=== PATIENT | male | born 1970 | race Two or more races ===

== ENCOUNTER 2017-06-19 16:05 | Emergency (ER) | payer BC, OTHER ==
[2017-06-19 16:21] VITALS: TEMP 98.7; BMI 33.5
[2017-06-19] MEDS ORDERED: SODIUM CHLORIDE 1,000 ML IV STA ×3 (16:50→21:26)
[2017-06-19] MEDS ORDERED: ONDANSETRON 4 MG/2 ML VIAL IVPB ONE (16:50)
[2017-06-19] MEDS ORDERED: FAMOTIDINE 20 MG/50 ML IVPB 50 ML IVPB ONE ×2 (16:50→17:45)
[2017-06-19] MEDS ORDERED: ONDANSETRON 4 MG/2 ML VIAL ONE (17:45)
[2017-06-19 17:51] LABS: BASOPHIL 0.8 % (0-2.0); EOSINOPHIL 0.3 % (0-4.5); MCH 29.2 pg (25.7-33.7); MCHC 33.9 g/dl (32.0-35.9); MEAN CELL VOLUME 86.2 fl (80-96); MEAN PLT VOLUME 9.8 fl (7.5-11.1); NEUTROPHILS 77.9 % (42.8-82.8); PLATELET COUNT 238 K/MM3 (134-434); RDW 13.1 % (11.9-15.9); WHITE BLOOD COUNT 11.9 K/mm3 (4.0-10.0)
[2017-06-19 18:16] LABS: ALBUMIN 4.2 g/dl (3.4-5.0); ANION GAP 14 (8-16); CALCIUM 10.4 mg/dL (8.5-10.1); CO2 27 mmol/L (21-32); CREATININE 1.6 mg/dL (0.7-1.3); GLUCOSE,RANDOM 105 mg/dL (74-106); SGOT/AST 27 U/L (15-37); SGPT/ALT 30 U/L (12-78); TOT PROT 8.4 g/dl (6.4-8.2)
[2017-06-19 18:17] LABS: ALK PHOS 75 U/L (45-117)
--- NOTE | 2017-06-19 19:30 | PDOC ---
History of Present Illness - General History Source: Patient Exam Limitations: No Limitations - History of Present Illness Initial Comments: 06/19/17 19:30 The patient is 46 year old male with a significant past medical history of HTN, HLD, and recent gastric sleeve (06/07/17) who presents to the ED with one day of nausea and vomiting. Patient states he recently had the gastric sleeve surgery on 06/07/17 in [facility] (lost 25 pounds). He states he is currently on the liquid protein diet and ran out of his nausea medication 1 week ago. The patient reports an onset of nausea and multiple episodes of vomiting since earlier today. He reports he is unable to drink, eat or take his medication secondary to vomiting. Patient also reports abdominal pain and 1 bowel movement associated with present symptoms. He notes he was at his baseline yesterday and reports this is first episode of nausea and vomiting since getting the procedure done. Denies fevers or chills. Denies diarrhea. Denies dysuria or changes in urinary output. Denies any other symptoms. Surgical hx: Gastric sleeve, Vasectomy <Ирина Thompson - Last Filed: 06/19/17 23:10> <Dominga Swann - Last Filed: 06/19/17 23:42> - General Chief Complaint: Pain, Acute Stated Complaint: STOMAH PAIN Time Seen by Provider: 06/19/17 16:52 Past History <Ирина Thompson - Last Filed: 06/19/17 23:10> - Past Medical History HTN: Yes Hypercholesterolemia: Yes - Surgical History Abdominal Surgery: Yes (gastric sleeve-06/07/2017) - Psycho/Social/Smoking Cessation Hx Suicidal Ideation: No Smoking History: Never smoked <Dominga Swann - Last Filed: 06/19/17 23:42> - Past Medical History Allergies/Adverse Reactions: Allergies Allergy/AdvReac Type Severity Reaction Status Date / Time No Known Allergies Allergy Verified 06/19/17 16:17 Home Medications: Ambulatory Orders Atorvastatin Ca [Lipitor] 20 mg PO DAILY 06/19/17 Calcium Carbonate/Vitamin D2 [Calcium Oys Shell 250 mg Tab] 1 each PO BID Enoxaparin [Lovenox -] 40 mg SQ DAILY 06/19/17 Famotidine 20 mg PO BID 06/19/17 Metoclopramide HCl 10 mg PO TID 06/19/17 Multivitamin [Poly-Vitamin] 1 each PO DAILY 06/19/17 Oxycodone HCl/Acetaminophen [Oxycodone-Acetaminophen 5-325] 1 each PO QID PRN Triamterene/Hydrochlorothiazid [Maxzide 37.5 mg-25 mg Tablet] 1 each PO DAILY Ursodiol [Actigall] 600 mg PO BID 06/19/17 Review of Systems - Review of Systems Able to Perform ROS?: Yes Comments:: 06/19/17 19:30 CONSTITUTIONAL: No reported: Fever, Chills, Diaphoresis, Generalized Weakness, Malaise, Loss of Appetite HEENT: No reported: Rhinorrhea, Nasal Congestion, Throat Pain, Throat Swelling, Difficulty Swallowing, Mouth Swelling, Ear Pain, Eye Pain, Visual Changes CARDIOVASCULAR: No reported: Chest Pain, Syncope, Palpitations, Irregular Heart Rate, Lightheadedness, Peripheral Edema RESPIRATORY: No reported: Cough, Shortness of Breath, SOB with Exertion, Orthopnea, Wheezing , Stridor, Hemoptysis GASTROINTESTINAL: + nausea, vomiting, abdominal pain No reported: Abdominal Distension, Diarrhea, Constipation, Melena, Hematochezia GENITOURINARY: No reported: Dysuria, Frequency, Urgency, Hesitancy, Flank Pain, Genital Pain MUSCULOSKELETAL: No reported: Myalgia, Arthralgia, Joint Swelling, Back pain, Neck Pain SKIN: No reported: Rash, Itching, Pallor HEMEATOLOGIC/IMMUNOLOGIC: No reported: Easy Bleeding, Easy Bruising, Lymphadenopathy, Frequent infections ENDOCRINE: No reported: Unexplained Weight Gain, Unexplained Weight Loss, Heat Intolerance , Cold Intolerance NEUROLOGIC: No reported: Headache, Focal Weakness, Paresthesias, Vertigo, Lightheadedness, Unsteady Gait, Seizure, Mental Status Changes, Incontinence PSYCHIATRIC: No reported: Anxiety, Depression All Other Systems: Reviewed and Negative <Ирина Thompson - Last Filed: 06/19/17 23:10> *Physical Exam - Vital Signs Last Vital Signs Temp Pulse Resp BP Pulse Ox 98.7 F 115 H 19 122/73 98 06/19/17 16:17 06/19/17 16:17 06/19/17 16:17 06/19/17 16:17 09/03/17 16:17 - Physical Exam Comments: 06/19/17 19:31 GENERAL: Well developed, well nourished. Awake and alert. No acute distress. HEENT: Normocephalic, atraumatic. PERRLA, EOMI. No conjunctival pallor. Sclera are non- icteric. Moist mucous membranes. Oropharynx is clear. NECK: Supple. Full ROM. No JVD. Carotid pulses 2+ and symmetric, without bruits. No thyromegaly. No lymphadenopathy. CARDIOVASCULAR: + tachycardic, Regular rhythm. No murmurs, rubs, or gallops. Distal pulses are 2 + and symmetric. PULMONARY: No evidence of respiratory distress. Lungs clear to auscultation bilaterally. No wheezing, rales or rhonchi. ABDOMINAL: Soft. Non-tender. Non-distended. No rebound or guarding. No organomegaly. Normoactive bowel sounds. MUSCULOSKELETAL Normal range of motion at all joints. No bony deformities or tenderness. No CVA tenderness. EXTREMITIES: No cyanosis. No clubbing. No edema. No calf tenderness. SKIN: Warm and dry. Normal capillary refill. No rashes. No jaundice. NEUROLOGICAL: Alert, awake, appropriate. Cranial nerves 2-12 intact. No deficits to light touch and temperature in face, upper extremities and lower extremities. No motor deficits in the in face, upper extremities and lower extremities. Normoreflexic in the upper and lower extremities. Normal speech. Toes are down- going bilaterally. Gait is normal without ataxia. PSYCHIATRIC: Cooperative. Good eye contact. Appropriate mood and affect. <Ирина Thompson - Last Filed: 06/19/17 23:10> - Vital Signs Last Vital Signs Temp Pulse Resp BP Pulse Ox 98.7 F 115 H 19 122/73 98 06/19/17 16:17 06/19/17 16:17 06/19/17 16:17 06/19/17 16:17 06/19/17 16:17 <Dominga Swann - Last Filed: 06/19/17 23:42> ED Treatment Course - LABORATORY CBC & Chemistry Diagram: 06/19/17 17:40 06/19/17 20:30 - ADDITIONAL ORDERS Additional order review: Laboratory Results 06/19/17 06/19/17 17:40 17:36 Sodium 136 Potassium 4.0 Chloride 95 L Carbon Dioxide 27 Anion Gap 14 BUN 33 H Creatinine 1.6 H Creat Clearance w eGFR 46.98 Random Glucose 105 Lactic Acid 1.4 Calcium 10.4 H Total Bilirubin 1.0 AST 27 ALT 30 Alkaline Phosphatase 75 Total Protein 8.4 H Albumin 4.2 Lipase 560 H 06/19/17 17:40 RBC 5.93 H MCV 86.2 MCHC 33.9 RDW 13.1 MPV 9.8 Neutrophils % 77.9 Lymphocytes % 10.7 Monocytes % 10.3 H Eosinophils % 0.3 Basophils % 0.8 - RADIOLOGY Radiograph Interpretation: 06/19/17 23:10 EXAM: CT ABDOMEN AND PELVIS WITH CONTRAST FINDINGS: 3.6 x 2.8 x 2.1 cm hypodensity in medial portion of spleen, question splenic infarct versus hemangioma. Splenic artery patent. Gastric sleeve surgery. Stomach otherwise unremarkable. Minimal fat stranding near gastric antrum, probably postoperative scarring or edema. No focal fluid collection or abscess. No bowel obstruction, colitis, free fluid or free air. Normal appendix. Diverticulosis colon without acute diverticulitis. Cystic foci bilateral kidneys. Unremarkable pancreas and gallbladder. Multiple small hepatic cysts. Small left inguinal region hernia containing fat. Reported by: [employer] architect - Medications Given in the ED: ED Medications Discontinued Medications Generic Name Dose Route Start Last Admin Trade Name Freq PRN Reason Stop Dose Admin Famotidine/Sodium Chloride 50 mls @ 100 mls/hr 06/19/17 16:50 06/19/17 17:50 Pepcid 20 Mg Premixed Ivpb - IVPB 06/19/17 17:19 100 mls/hr ONCE ONE Administration Sodium Chloride 1,000 mls @ 1,000 mls/hr 06/19/17 16:50 06/19/17 17:50 Normal Saline - IV 06/19/17 17:49 1,000 mls/hr ASDIR STA Administration Ondansetron HCl 4 mg 06/19/17 16:50 06/19/17 17:50 Zofran Injection IVPB 06/19/17 16:51 4 mg ONCE ONE Administration <Ирина Thompson - Last Filed: 06/19/17 23:10> - LABORATORY CBC & Chemistry Diagram: 06/19/17 17:40 06/19/17 20:30 - ADDITIONAL ORDERS Additional order review: Laboratory Results 06/19/17 06/19/17 17:40 17:36 Sodium 136 Potassium 4.0 Chloride 95 L Carbon Dioxide 27 Anion Gap 14 BUN 33 H Creatinine 1.6 H Creat Clearance w eGFR 46.98 Random Glucose 105 Lactic Acid 1.4 Calcium 10.4 H Total Bilirubin 1.0 AST 27 ALT 30 Alkaline Phosphatase 75 Total Protein 8.4 H Albumin 4.2 Lipase 560 H 06/19/17 17:40 RBC 5.93 H MCV 86.2 MCHC 33.9 RDW 13.1 MPV 9.8 Neutrophils % 77.9 Lymphocytes % 10.7 Monocytes % 10.3 H Eosinophils % 0.3 Basophils % 0.8 - RADIOLOGY Radiology Studies Ordered: Category Date Time Status ABDOMEN & PELVIS CT WITH CONTR [CT] Stat CT Scan 06/19/17 18:28 Ordered - Medications Given in the ED: ED Medications Discontinued Medications Generic Name Dose Route Start Last Admin Trade Name Freq PRN Reason Stop Dose Admin Famotidine/Sodium Chloride 50 mls @ 100 mls/hr 06/19/17 16:50 06/19/17 17:50 Pepcid 20 Mg Premixed Ivpb - IVPB 06/19/17 17:19 100 mls/hr ONCE ONE Administration Sodium Chloride 1,000 mls @ 1,000 mls/hr 06/19/17 16:50 06/19/17 17:50 Normal Saline - IV 06/19/17 17:49 1,000 mls/hr ASDIR STA Administration Ondansetron HCl 4 mg 06/19/17 16:50 06/19/17 17:50 Zofran Injection IVPB 06/19/17 16:51 4 mg ONCE ONE Administration <Dominga Swann - Last Filed: 06/19/17 23:42> Medical Decision Making - Medical Decision Making 06/19/17 20:14 46-year-old male presents with 1 day of nausea and persistent vomiting. He did have a gastric sleeve placed about 3 weeks ago at a hospital in [facility]. His physician is on vacation the covering surgeon told to come to the nearest hospital. He lives locally, so he came [facility]. He's also had 25 pounds since his surgery. He still is on the liquid only diet and does not take any regular food as yet . Patient denies any significant pain at the time of arrival, there was no guarding. He said that he had increased pain earlier but has diminished. However, he doesn't complain persistent nausea Patient was given IV Zofran CBC did not show any significant leukocytosis, however, chemistries did show an increased creatinine of 1.6 . I spoke to the patient about his elevated kidney function tests and he said that this is a chronic problem, but was not able to give me the range of his normal creatinine levels. He said his doctors in the past told him it was elevated because he works out at the gym Plan CAT scan of abd/pelvis -he received 2 L IV fluids and his creatinine came down to 1.3. 06/19/17 23:30 CAT scan of the abdomen and pelvis with contrast showed a 3.62.82.1 cm hypodensity in the medial portion spleen, questionable splenic infarct versus hemangioma. The splenic artery was patent. Gastric sleeve surgery. Stomach, otherwise unremarkable Minimal fat stranding in the gastric antrum, probable postoperative scarring or edema. No focal fluid collection or abscess or bowel obstruction, colitis, free fluid or free air. Normal appendix Diverticulosis without any acute diverticulitis Cystic for her bilateral kidneys Unremarkable, pancreas and gallbladder Multiple small hepatic cysts, small left inguinal assessing the patient. PATIENT REASSESSMENT: He has no further vomiting. He states he has no abdominal pain. He remained afebrile during his stay in the emergency department I spoke with the covering surgeon, Dr. Mayers from his standpoint, the patient can be discharged home with follow-up this week with the pt's regular surgeon. She will be given I discussed the images of his CAT scan to take with them to see his surgeon. He already has an appointment on Tuesday <Dominga Swann - Last Filed: 06/19/17 23:42> *DC/Admit/Observation/Transfer - Attestations Scribe Attestion: 06/19/17 19:31 Documentation prepared by Ирина Thompson, acting as medical office technologist for Dominga Swann MD <Ирина Thompson - Last Filed: 06/19/17 23:10> <Dominga Swann - Last Filed: 06/19/17 23:42> Diagnosis at time of Disposition: Status post bariatric surgery Vomiting Qualifiers: Vomiting type: unspecified Vomiting Intractability: non-intractable Nausea presence: with nausea Qualified Code(s): R11.2 - Nausea with vomiting, unspecified - Discharge Dispostion Disposition: HOME Condition at time of disposition: Stable - Patient Instructions Printed Discharge Instructions: DI for Vomiting -- Adult Additional Instructions: PLEASE KEEP YOUR APPOINTMENT WITH YOUR SURGEON THIS WEEK TAKE YOUR IMAGING STUDIES AND LAB RESULTS WITH YOU WHEN YOU SEE YOUR SURGEON RETURN FOR ANY WORSENING SYMPTOMS
[2017-06-19 20:47] LABS: URINE APPEARANCE SLCLOUDY; URINE BILIRUBIN NEGATIVE (NEGATIVE); URINE BLOOD NEGATIVE (NEGATIVE); URINE COLOR YELLOW; URINE GLUCOSE (UA) NEGATIVE (NEGATIVE); URINE KETONE 1+ (NEGATIVE); URINE LEUK ESTERASE NEGATIVE (NEGATIVE); URINE NITRITE NEGATIVE (NEGATIVE); URINE PROTEIN NEGATIVE (NEGATIVE); URINE UROBILINOGEN NEGATIVE mg/dL (0.2-1.0)
[2017-06-19 21:15] LABS: ANION GAP 11 (8-16); CALCIUM 8.6 mg/dL (8.5-10.1); CO2 27 mmol/L (21-32); CREATININE 1.3 mg/dL (0.7-1.3); GLUCOSE,RANDOM 94 mg/dL (74-106)
[2017-06-19 23:42] VITALS: BP 117/65; PULSE 86
--- NOTE | 2017-06-20 22:15 | EKG ---
Test Reason : Blood Pressure : / mmHG Vent. Rate : 094 BPM Atrial Rate : 094 BPM P-R Int : 160 ms QRS Dur : 096 ms QT Int : 352 ms P-R-T Axes : 047 -13 027 degrees QTc Int : 440 ms NORMAL SINUS RHYTHM NORMAL ECG NO PREVIOUS ECGS AVAILABLE Confirmed by RAYA PATEL MD ([id number]) on 06/20/2017 10:14:42 PM Referred By: Confirmed By:RAYA PATEL MD
--- NOTE | 2017-06-20 23:29 | PDOC ---
Patient Follow-up (Call Back) - Post ED Follow - Up Condition at time of discharge: Stable Disposition at time of original discharge: HOME Reason for Call Back: Radiology (Received call from Dr. Danyel Bansal after he performed a re read of a CT ABD/PEL with contrast that was done yesterday. Dr Bansal called and reported that there is a lack of opacification of the main portal vein and portal branches as well as the superior mesenteric vein, which may be on the basis of thrombosis. He requested that the patient be called immediately and return for a triple phase CT with IV contrast. Pt. was called multiple times at home number as listed in his chart, close of kin listed had same phone number, number was not in working order, also attempted to call employer to ask for his number, however no answer. Dr. Swann contacted the surgeon, at [facility] . is going to continue look at his chart and see what number he has for Mr. Fontenot and contact him. He will Dr. Swann back with the results his attempt. If they are unable to contact him by phone police will be notified to go to his home to have him come here for further imaging.)
== END 2017-06-19 23:45 | disposition home or self-care (01) ==
LOC: JER 16:05
PROC: 3E033GC Introduction of Other Therapeutic Substance into Peripheral Vein, Percutaneous Approach (ICD-10-PCS; principal; 2017-06-19)
PROC: 3E033GC Introduction of Other Therapeutic Substance into Peripheral Vein, Percutaneous Approach (ICD-10-PCS; 2017-06-19)
DX: R11.2 Nausea with vomiting, unspecified (principal); Z98.84 Bariatric surgery status; I10 Essential (primary) hypertension; E78.00 Pure hypercholesterolemia, unspecified
CPT/HCPCS: 36415; 74177-TC; 80048; 80053; 81003; 83605; 83690; 85025; 93005; 93010; 99283-25

== ENCOUNTER 2017-06-21 02:09 | Inpatient (IN) | payer BC, OTHER ==
[2017-06-21] MEDS ORDERED: SODIUM CHLORIDE 1,000 ML IV STA (02:40)
[2017-06-21 02:44] VITALS: BMI 34.0
[2017-06-21 02:57] LABS: BASOPHIL 0.5 % (0-2.0); EOSINOPHIL 0.2 % (0-4.5); MCH 29.2 pg (25.7-33.7); MCHC 34.4 g/dl (32.0-35.9); MEAN CELL VOLUME 84.8 fl (80-96); MEAN PLT VOLUME 9.3 fl (7.5-11.1); NEUTROPHILS 73.7 % (42.8-82.8); PLATELET COUNT 173 K/MM3 (134-434); RDW 12.9 % (11.9-15.9); WHITE BLOOD COUNT 11.6 K/mm3 (4.0-10.0)
[2017-06-21 03:12] LABS: INR 1.68 (0.82-1.09); PROTHROMBIN TIME (PATIENT) 18.7 SEC (9.98-11.88)
[2017-06-21 03:21] LABS: ALBUMIN 3.5 g/dl (3.4-5.0); ALK PHOS 68 U/L (45-117); ANION GAP 11 (8-16); BILIRUBIN,TOTAL 1.1 mg/dL (0.2-1.0); CO2 30 mmol/L (21-32); CREATININE 1.1 mg/dL (0.7-1.3); GLUCOSE,RANDOM 93 mg/dL (74-106); SGOT/AST 18 U/L (15-37); SGPT/ALT 21 U/L (12-78); TOT PROT 7.3 g/dl (6.4-8.2)
--- NOTE | 2017-06-21 03:33 | PDOC ---
History of Present Illness <Angel Syed - Last Filed: 06/21/17 06:31> - General History Source: Patient Exam Limitations: No Limitations - History of Present Illness Initial Comments: 06/21/17 03:35 Patient is a 46 year old male with a significant past medical history of HTN, HLD, and recent gastric sleeve (06/07/17) who presents to the ED for abnormal radiology results. Patient was discharged yesterday night after imaging [employer] radiologist cleared patient. [place] radiologist reviewed x-ray report and noticed possibility of blood clot in portal vein and its branches. Attending physician attempted to contact patient with no success. Physician contacted police to patients home to establish contact with patient. Attending physician Dr. Syed agrees with Dr. Swann input to order Triple phase CT angiogram of abdomen and pelvis. Denies headache, dizziness. Denies chest pain, SOB. Denies any other symptoms. Allergies: N/A <Butch Murcia - Last Filed: 06/21/17 06:56> - General Chief Complaint: Revisit,Radiology Variance Stated Complaint: PCP REFERRAL Time Seen by Provider: 06/21/17 02:43 Past History - Past Medical History HTN: Yes Hypercholesterolemia: Yes - Surgical History Abdominal Surgery: Yes (gastric sleeve-06/07/2017) - Psycho/Social/Smoking Cessation Hx Suicidal Ideation: No Smoking History: Never smoked Have you smoked in the past 12 months: No Information on smoking cessation initiated: No Hx Alcohol Use: No Drug/Substance Use Hx: No <Angel Syed - Last Filed: 06/21/17 06:31> <Butch Murcia - Last Filed: 06/21/17 06:56> - Past Medical History Allergies/Adverse Reactions: Allergies Allergy/AdvReac Type Severity Reaction Status Date / Time No Known Allergies Allergy Verified 06/21/17 02:42 Home Medications: Ambulatory Orders Atorvastatin Ca [Lipitor] 20 mg PO DAILY 06/19/17 Calcium Carbonate/Vitamin D2 [Calcium Oys Shell 250 mg Tab] 1 each PO BID Famotidine 20 mg PO BID 06/19/17 Metoclopramide HCl 10 mg PO TID 06/19/17 Multivitamin [Poly-Vitamin] 1 each PO DAILY 06/19/17 Oxycodone HCl/Acetaminophen [Oxycodone-Acetaminophen 5-325] 1 each PO QID PRN Triamterene/Hydrochlorothiazid [Maxzide 37.5 mg-25 mg Tablet] 1 each PO DAILY Ursodiol [Actigall] 600 mg PO BID 06/19/17 Ondansetron [Zofran Odt -] 4 mg SL TID PRN #21 od.tablet 06/20/17 Review of Systems - Review of Systems Able to Perform ROS?: Yes Comments:: 06/21/17 03:36 No change since yesterday night. All Other Systems: Reviewed and Negative <Butch Murcia - Last Filed: 06/21/17 06:56> *Physical Exam - Vital Signs Last Vital Signs Temp Pulse Resp BP Pulse Ox 98.6 F 91 H 14 119/56 96 06/21/17 02:42 06/21/17 02:42 06/21/17 02:42 06/21/17 02:42 06/21/17 02:42 <Angel Syed - Last Filed: 06/21/17 06:31> - Vital Signs Last Vital Signs Temp Pulse Resp BP Pulse Ox 98.6 F 91 H 14 119/56 96 06/21/17 02:42 06/21/17 02:42 06/21/17 02:42 06/21/17 02:42 06/21/17 02:42 - Physical Exam Comments: 06/21/17 03:36 GENERAL: Awake, alert, and fully oriented, in no acute distress HEAD: No signs of trauma EYES: PERRLA, EOMI, sclera anicteric, conjunctiva clear ENT: Auricles normal inspection, hearing grossly normal, nares patent, oropharynx clear without exudates. Moist mucosa NECK: Normal ROM, supple, no lymphadenopathy, JVD, or masses LUNGS: Breath sounds equal, clear to auscultation bilaterally. No wheezes, and no crackles HEART: Regular rate and rhythm, normal S1 and S2, no murmurs, rubs or gallops ABDOMEN: Soft, nontender, normoactive bowel sounds. No guarding, no rebound. No masses EXTREMITIES: Normal range of motion, no edema. No clubbing or cyanosis. No cords, erythema, or tenderness NEUROLOGICAL: Cranial nerves II through XII grossly intact. Normal speech, normal gait SKIN: Warm, Dry, normal turgor, no rashes or lesions noted. <Butch Murcia - Last Filed: 06/21/17 06:56> Heart Score/ECG Review - ECG Intrepretation Comment:: 06/21/17 06:55 Normal Sinus Rhythm Normal ECG <Butch Murcia - Last Filed: 06/21/17 06:56> ED Treatment Course - LABORATORY CBC & Chemistry Diagram: 06/21/17 02:49 06/21/17 02:49 - ADDITIONAL ORDERS Additional order review: Laboratory Results 06/21/17 06/21/17 02:49 02:49 INR 1.68 H Sodium 137 Potassium 3.7 Chloride 96 L Carbon Dioxide 30 Anion Gap 11 BUN 15 D Creatinine 1.1 Creat Clearance w eGFR > 60 Random Glucose 93 Calcium 9.0 Total Bilirubin 1.1 H AST 18 D ALT 21 D Alkaline Phosphatase 68 Total Protein 7.3 Albumin 3.5 06/21/17 02:49 RBC 4.95 MCV 84.8 MCHC 34.4 RDW 12.9 MPV 9.3 Neutrophils % 73.7 Lymphocytes % 13.1 D Monocytes % 12.5 H Eosinophils % 0.2 Basophils % 0.5 <Angel Syed - Last Filed: 06/21/17 06:31> - LABORATORY CBC & Chemistry Diagram: 06/21/17 02:49 06/21/17 02:49 - ADDITIONAL ORDERS Additional order review: Laboratory Results 06/21/17 06/21/17 02:49 02:49 INR 1.68 H Sodium 137 Potassium 3.7 Chloride 96 L Carbon Dioxide 30 Anion Gap 11 BUN 15 D Creatinine 1.1 Creat Clearance w eGFR > 60 Random Glucose 93 Calcium 9.0 Total Bilirubin 1.1 H AST 18 D ALT 21 D Alkaline Phosphatase 68 Total Protein 7.3 Albumin 3.5 06/21/17 02:49 RBC 4.95 MCV 84.8 MCHC 34.4 RDW 12.9 MPV 9.3 Neutrophils % 73.7 Lymphocytes % 13.1 D Monocytes % 12.5 H Eosinophils % 0.2 Basophils % 0.5 <Butch Murcia - Last Filed: 06/21/17 06:56> Medical Decision Making - Medical Decision Making 06/21/17 06:29 Portal Vein Thrombus- Case discussed with Dr. ARROYO, covering for Dr. Thomas. Nothing to do with Gastric Sleve.... but this is a complication and that is why the patient should have been taking the Lovenox. Needs IV Heparin and then bridged to coumadin. <Angel Syed - Last Filed: 06/21/17 06:31> - Medical Decision Making 06/21/17 05:[address] Efrain Arroyo @5:47am. Awaiting Call back Called back @6:09am. Case discussed. <Butch Murcia - Last Filed: 06/21/17 06:56> *DC/Admit/Observation/Transfer - Discharge Dispostion Admit: Yes - Attestations Physician Attestion: 06/21/17 03:33 I, Dr. Angel Syed, attest that this document has been prepared under my direction and personally reviewed by me in its entirety. I further attest, that it accurately reflects all work, treatment, procedures and medical decision -making performed by me. <Angel Syed - Last Filed: 06/21/17 06:31> - Attestations Scribe Attestion: 06/21/17 03:37 Documentation prepared by Butch Murcia, acting as medical billing assistant for Angel Syed MD. <Butch Murcia - Last Filed: 06/21/17 06:56> Diagnosis at time of Disposition: Portal vein thrombosis - Discharge Dispostion Condition at time of disposition: Unchanged/Unknown
[2017-06-21] MEDS ORDERED: HEPARIN NA (PORCINE) 5,000 UNITS/ML 1ML VIAL IVPUSH PRN ×2 (06:23)
[2017-06-21] MEDS ORDERED: HEPARIN INFUSION - 500 ML IVPB ONE (06:43)
[2017-06-21] MEDS: HEPARIN INFUSION - 500 ML IVPB SCH (06:55)
[2017-06-21] MEDS ORDERED: ONDANSETRON 4 MG/2 ML VIAL IVPB PRN (07:46)
[2017-06-21] MEDS ORDERED: ACETAMINOPHEN 325 MG TABLET (FP) PO PRN (09:20)
--- NOTE | 2017-06-21 09:21 | HP ---
CHIEF COMPLAINT: Abd pain and n/v PCP: Non-staff ( Dr. Efrain Mayers ) HISTORY OF PRESENT ILLNESS: 46 yo M h/o recent gastric sleeve (06/07/17) who presents to the ED with abdominal pain, nausea and vomiting x 2 days. Patient started experiencing the symptoms on Tuesday afternoon. His surgeon who performed the sleeve told him to come in the ED for further evaluation. CT abd done in ED showed probable portal vein thrombosis (PVT). However, the ED was informed of the official finding after patient was discharged on zofran. Fortunately, caring ED physician contacted the police after multiple attempts trying to reach the patient. Eventually, patient was found and brought in by police for urgent medical attention. Patient stated that the abd pain started without warning or trigger, located in lower quadrants, 7/10, pressure-like, non-radiating, not related to food intake or position, moderately relieved with oxycodone, a/w nausea and non-bloody non- bilious vomiting. Denies h/o liver disease, sick contact, recent travel, dietary change, fever, chills, chest pain, shortness of breath, urinary or bowel symptoms. ER course was notable for: (1) Triple phase CT abd done pending report (2) Start on heparin gtt (3) Hemodynamically stable Recent Travel: Denies PAST MEDICAL HISTORY: HTN, HLD, ?leaky valve PAST SURGICAL HISTORY: gastric sleeve 06/07/17 Social History: Smoking: Denies Alcohol: Denies Drugs: Denies Family History: Non-contributory Allergies No Known Allergies Allergy (Verified 06/21/17 02:42) HOME MEDICATIONS: Home Medications Medication Instructions Recorded Atorvastatin Ca [Lipitor] 20 mg PO DAILY 06/19/17 Calcium Carbonate/Vitamin D2 1 each PO BID 06/19/17 [Calcium Oys Shell 250 mg Tab] Famotidine 20 mg PO BID 06/19/17 Metoclopramide HCl 10 mg PO TID 06/19/17 Multivitamin [Poly-Vitamin] 1 each PO DAILY 06/19/17 Oxycodone HCl/Acetaminophen 1 each PO QID PRN 06/19/17 [Oxycodone-Acetaminophen 5-325] Triamterene/Hydrochlorothiazid 1 each PO DAILY 06/19/17 [Maxzide 37.5 mg-25 mg Tablet] Ursodiol [Actigall] 600 mg PO BID 06/19/17 Ondansetron [Zofran Odt -] 4 mg SL TID PRN #21 od.tablet 06/20/17 REVIEW OF SYSTEMS CONSTITUTIONAL: Absent: fever, chills, diaphoresis, generalized weakness, malaise, loss of appetite, weight change HEENT: Absent: rhinorrhea, nasal congestion, throat pain, throat swelling, difficulty swallowing, mouth swelling, ear pain, eye pain, visual changes CARDIOVASCULAR: Absent: chest pain, syncope, palpitations, irregular heart rate, lightheadedness , peripheral edema RESPIRATORY: Absent: cough, shortness of breath, dyspnea with exertion, orthopnea, wheezing, stridor, hemoptysis GASTROINTESTINAL:abdominal pain, abdominal distension, nausea, vomiting Absent: diarrhea, constipation, melena, hematochezia GENITOURINARY: Absent: dysuria, frequency, urgency, hesitancy, hematuria, flank pain, genital pain MUSCULOSKELETAL: Absent: myalgia, arthralgia, joint swelling, back pain, neck pain SKIN: Absent: rash, itching, pallor HEMATOLOGIC/IMMUNOLOGIC: Absent: easy bleeding, easy bruising, lymphadenopathy, frequent infections ENDOCRINE: Absent: unexplained weight gain, unexplained weight loss, heat intolerance, cold intolerance NEUROLOGIC: Absent: headache, focal weakness or paresthesias, dizziness, unsteady gait, seizure, mental status changes, bladder or bowel incontinence PSYCHIATRIC: Absent: anxiety, depression, suicidal or homicidal ideation, hallucinations. PHYSICAL EXAMINATION Last Vital Signs Temp Pulse Resp BP Pulse Ox 98.6 F 83 18 127/75 98 06/21/17 02:42 06/21/17 07:43 06/21/17 07:43 06/21/17 07:43 06/21/17 07:43 GENERAL: AAOx3, in no acute distress. EYES: Pupils equal, round and reactive to light, extraocular movements intact, sclera anicteric, conjunctiva clear. EARS, NOSE, THROAT: oropharynx clear without exudates. Moist mucous membranes. LUNGS: CTAB HEART: RRR, normal S1 and S2 without murmur, rub or gallop. ABDOMEN: RUQ tenderness, moderately distended, normoactive bowel sounds, no guarding, no rebound, no masses. No hepatomegaly, mild splenomegaly. EXTREMITIES: 2+ pulses, warm, well-perfused. No calf tenderness. No peripheral edema. NEUROLOGICAL: Cranial nerves II-XII intact. Normal speech. Normal gait. PSYCHIATRIC: Cooperative. Good eye contact. Appropriate mood and affect. SKIN: Warm, dry, normal turgor, no rashes or lesions noted, normal capillary refill. CBCD WBC 11.6 K/mm3 (4.0-10.0) H 06/21/17 02:49 RBC 4.95 M/mm3 (4.00-5.60) 06/21/17 02:49 Hgb 14.5 GM/dL (11.7-16.9) D 06/21/17 02:49 Hct 42.0 % (35.4-49) D 06/21/17 02:49 MCV 84.8 fl (80-96) 06/21/17 02:49 MCHC 34.4 g/dl (32.0-35.9) 06/21/17 02:49 RDW 12.9 % (11.9-15.9) 06/21/17 02:49 Plt Count 173 K/MM3 (134-434) D 06/21/17 02:49 MPV 9.3 fl (7.5-11.1) 06/21/17 02:49 CMP Sodium 137 mmol/L (136-145) 06/21/17 02:49 Potassium 3.7 mmol/L (3.5-5.1) 06/21/17 02:49 Chloride 96 mmol/L (98-107) L 06/21/17 02:49 Carbon Dioxide 30 mmol/L (21-32) 06/21/17 02:49 Anion Gap 11 (8-16) 06/21/17 02:49 BUN 15 mg/dL (7-18) D 06/21/17 02:49 Creatinine 1.1 mg/dL (0.7-1.3) 06/21/17 02:49 Creat Clearance w eGFR > 60 (>60) 06/21/17 02:49 Calcium 9.0 mg/dL (8.5-10.1) 06/21/17 02:49 Total Bilirubin 1.1 mg/dL (0.2-1.0) H 06/21/17 02:49 AST 18 U/L (15-37) D 06/21/17 02:49 ALT 21 U/L (12-78) D 06/21/17 02:49 Alkaline Phosphatase 68 U/L (45-117) 06/21/17 02:49 Total Protein 7.3 g/dl (6.4-8.2) 06/21/17 02:49 Albumin 3.5 g/dl (3.4-5.0) 06/21/17 02:[address] abd on 06/21: pending official report CT Abd on 06/19: Probable small acute/subacute splenic infarct + probable portal vein thrombosis ASSESSMENT/PLAN: 46 yo M admitted to med-surg for probable portal vein thrombosis. Abdominal pain - Likely 2/2 portal vein thrombosis and splenic infarction - f/u triple phase CT scan - Heparin gtt bridge to coumadin - Percocet for pain control - Hemonc and GI consults s/p Gastric sleeve - Cont. reglan and ursodiol HTN - Cont. dyazide HLD - Cont. lipitor FEN - No fluid indicated - Normal lytes - Sodium controlled diet Prophylaxis - DVT: on heparin gtt - GI: on famotidine Dispo - Admit to obs - Cont. current medical management if imaging confirms PVT Visit type - Emergency Visit Emergency Visit: Yes ED Registration Date: 06/21/17 Care time: The patient presented to the Emergency Department on the above date and was hospitalized for further evaluation of their emergent condition. - New Patient This patient is new to me today: Yes Date on this admission: 06/21/17 - Critical Care Critical Care patient: No
[2017-06-21] MEDS ORDERED: CALCIUM 250MG/VIT-D 125 UNITS 1 COMBO TABLET PO SCH (10:00)
[2017-06-21] MEDS: TRIAMTERENE AND HCTZ - 37.5 MG/25 MG CAPSULE PO SCH (10:55)
[2017-06-21] MEDS: URSODIOL 300 MG CAPSULE PO SCH ×2 (10:55→21:03)
[2017-06-21] MEDS: MULTIVITAMINS (DAILY MVI) TABLET (FP) PO SCH (10:56)
[2017-06-21] MEDS: RANITIDINE HCL 150 MG TABLET (FP) PO SCH ×2 (10:56→21:04)
--- NOTE | 2017-06-21 12:46 | CON.GI ---
Consult Consult Specialty:: Gastroenterology for Dr. Perla Reason for Consultation:: Abdominal pain - History of Present Illness History of Present Illness: 46 yo M who is presenting today for mid to lower cramping abdominal pain that he has been experiencing since Tuesday06/19/17. He confirms associated nausea and vomiting x1 without noted blood or mucus in emesis. Pt states he had a Laparoscopic Gastric sleeve creation done on 06/07/[address] Thomas in [place], [place]. Pt states he had never used the post-operative Lovenox prescribed because his insurance wasn't covering it for unknown reason. Pt reports trying to keep active by walking at least an hour per day and has had regular consistent bowel movements without any blood noted since his surgery. Pt was previously seen on Tuesday06/19/17 for his same abdominal pain and CT was initially read as containing no thrombosis or infarcts with only hepatic cysts noted by [id number]. When CT was reevaluated by in-house staff, splenic infarct and portal vein thrombosis was noted and pt was contacted to return to hospital. Currently, pt confirms nausea and cramping [id number] abdominal pain b/l. Denies any fevers/chills, headaches, SOB, CP/discomfort, emesis, changes in bowel habits, changes in urinary habits, and leg edema. PCP - Dr. Hughes Gastric sleeve surgery - by Dr. 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 History of Recent Travel: No Home Medications - Allergies Allergies/Adverse Reactions: Allergies Allergy/AdvReac Type Severity Reaction Status Date / Time No Known Allergies Allergy Verified 06/21/17 02:42 - Home Medications Home Medications: Ambulatory Orders Atorvastatin Ca [Lipitor] 20 mg PO DAILY 06/19/17 Calcium Carbonate/Vitamin D2 [Calcium Oys Shell 250 mg Tab] 1 each PO BID Famotidine 20 mg PO BID 06/19/17 Metoclopramide HCl 10 mg PO TID 06/19/17 Multivitamin [Poly-Vitamin] 1 each PO DAILY 06/19/17 Oxycodone HCl/Acetaminophen [Oxycodone-Acetaminophen 5-325] 1 each PO QID PRN Triamterene/Hydrochlorothiazid [Maxzide 37.5 mg-25 mg Tablet] 1 each PO DAILY Ursodiol [Actigall] 600 mg PO BID 06/19/17 Ondansetron [Zofran Odt -] 4 mg SL TID PRN #21 od.tablet 06/20/17 Review of Systems - Review of Systems Constitutional: denies: Fever Gastrointestinal: reports: Abdominal Pain, Nausea, Vomiting (One episode w/o blood or mucus previously) Genitourinary: reports: No Symptoms Hematology/Lymphatic: reports: No Symptoms Physical Exam-GI Vital Signs: Vital Signs Temperature 98 F 06/21/17 10:44 Pulse Rate 68 06/21/17 10:44 Respiratory Rate 18 06/21/17 10:44 Blood Pressure 118/71 06/21/17 10:44 O2 Sat by Pulse Oximetry (%) 96 06/21/17 10:44 Constitutional: Yes: No Distress, Calm, Other (Laying comfortably in bed) Eyes: Yes: Conjunctiva Clear, EOM Intact, PERRL HENT: Yes: Atraumatic, Normocephalic Neck: Yes: Trachea Midline Cardiovascular: Yes: Regular Rate and Rhythm. No: Murmur Respiratory: Yes: Regular, CTA Bilaterally. No: Rales, Rhonchi, SOB, Wheezes Gastrointestinal Inspection: Yes: Scars (Laparoscopic scars c/d/i with surgical glue) ...Auscultate: Yes: Normoactive Bowel Sounds ...Palpate: Yes: Soft, Tenderness (RUQ tenderness with inspiration). No: Pulsatile Mass Extremities: Yes: Other (Warm, no edema noted, cap refill <2, no limits with ROM ) Edema: No Peripheral Pulses WNL: Yes Neurological: Yes: Alert, Oriented Psychiatric: Yes: Alert, Oriented Labs: INR, PTT INR 1.68 (0.82-1.09) H 06/21/17 02:49 Imaging - Results Cat Scan: Report Reviewed, Image Reviewed Problem List - Problems (1) Portal vein thrombosis Assessment/Plan: 46yo M with portal vein thrombosis noted on triple phase CT revised report by inhouse staff. Bariatric surgery 06/07/17 without use of Lovenox. --Continue Heparin gtt --Pain controlled currently --Continue Oxycodone PRN for abd pain --Zofran 4mg PRN for nausea --NPO diet for now to limit blood outflow through thrombotic area --D5-1/2NS for hydration ATTENDING PHYSICIAN STATEMENT I saw and evaluated the patient. I reviewed the resident's note and discussed the case with the resident. I agree with the resident's findings and plan as documented. SUBJECTIVE: 46M w/ N/V and abdominal pain from this past weekend. Recent Lap Sleeve Gastrectomy 06/07/17 Noted to have extensive PVT / splenic infarcts OBJECTIVE: Anicteric Hrt RRR Lungs: CTA B/L Abd: + normoactive BS, mild TTP upper abdomen (however patient received percocet prior to exam) Ext: no LE edema Labs: transaminases wnl Bili 1.1 WBC: 11 On imaging: as noted above. Also, small bowel zhao did not appear thickened ASSESSMENT Acute/subacute portal vein thrombosis. patient appears clinically stable with retained liver function and now clinical suggestion of bowel infarction ? etiology: No suggestion of liver cirrhosis clinically or by lab studies. Recent instrumentation s/p bariatric surgery, ? hypercoagulability (his father is on A/C for ? reasons) PLAN: Continuing A/C for now. On heparin with adjudtment per protocol per primary team Heme consult ordered Monitor abdominal exam Monitor LFTs Minmize hepatotoxic agents Hepatitis serologies ordered: Hepatitis C antibody, Hepatitis B surface antigen , Hepatitis BsAb Code(s): I81 - PORTAL VEIN THROMBOSIS
[2017-06-21] MEDS: METOCLOPRAMIDE HCL 10 MG TABLET (FP) PO SCH ×2 (13:29→18:00)
[2017-06-21] MEDS: oxyCODONE HCL 5 MG TABLET PO PRN ×2 (13:35→21:04)
--- NOTE | 2017-06-21 14:30 | PN ---
Progress Note (short form) - Note Progress Note: Please seen full consult Initial elevated lipase noted however suspect secondary to current intraabdominal process as opposed to acute pancreatitis being causative. Will follow
--- NOTE | 2017-06-21 15:41 | PN ---
Teaching Attending Note Name of Resident: Corey Razo ATTENDING PHYSICIAN STATEMENT I saw and evaluated the patient. I reviewed the resident's note and discussed the case with the resident. I agree with the resident's findings and plan as documented. SUBJECTIVE: Patient is a 46 yo M h/o recent gastric sleeve (06/07/17) had a weight loss of 20 pounds post surgery and he is on protein shake diet, who presents to the ED with abdominal pain, nausea and vomiting x 2 days. OBJECTIVE: Vital Signs Temperature 98.4 F 06/21/17 15:00 Pulse Rate 68 06/21/17 15:00 Respiratory Rate 18 06/21/17 15:00 Blood Pressure 119/54 06/21/17 15:00 O2 Sat by Pulse Oximetry (%) 96 06/21/17 10:44 GENERAL: AAOx3, in no acute distress. EYES: Pupils equal, round and reactive to light, extraocular movements intact, sclera anicteric, conjunctiva clear. EARS, NOSE, THROAT: oropharynx clear without exudates. Moist mucous membranes. LUNGS: CTABL HEART: RRR, normal S1 and S2 without murmur, rub or gallop. ABDOMEN: mild diffuse tenderness, normoactive bowel sounds, no guarding, no rebound, no masses. No hepatomegaly, mild splenomegaly. EXTREMITIES: 2+ pulses, warm, well-perfused. No calf tenderness. No peripheral edema. NEUROLOGICAL: Cranial nerves II-XII intact. Normal speech. Normal gait. PSYCHIATRIC: Cooperative. Good eye contact. Appropriate mood and affect. SKIN: Warm, dry, normal turgor, no rashes or lesions noted, normal capillary refill. CBCD WBC 11.6 K/mm3 (4.0-10.0) H 06/21/17 02:49 RBC 4.95 M/mm3 (4.00-5.60) 06/21/17 02:49 Hgb 14.5 GM/dL (11.7-16.9) D 06/21/17 02:49 Hct 42.0 % (35.4-49) D 06/21/17 02:49 MCV 84.8 fl (80-96) 06/21/17 02:49 MCHC 34.4 g/dl (32.0-35.9) 06/21/17 02:49 RDW 12.9 % (11.9-15.9) 06/21/17 02:49 Plt Count 173 K/MM3 (134-434) D 06/21/17 02:49 MPV 9.3 fl (7.5-11.1) 06/21/17 02:49 CMP Sodium 137 mmol/L (136-145) 06/21/17 02:49 Potassium 3.7 mmol/L (3.5-5.1) 06/21/17 02:49 Chloride 96 mmol/L (98-107) L 06/21/17 02:49 Carbon Dioxide 30 mmol/L (21-32) 06/21/17 02:49 Anion Gap 11 (8-16) 06/21/17 02:49 BUN 15 mg/dL (7-18) D 06/21/17 02:49 Creatinine 1.1 mg/dL (0.7-1.3) 06/21/17 02:49 Creat Clearance w eGFR > 60 (>60) 06/21/17 02:49 Random Glucose 93 mg/dL (74-106) 06/21/17 02:49 Calcium 9.0 mg/dL (8.5-10.1) 06/21/17 02:49 Total Bilirubin 1.1 mg/dL (0.2-1.0) H 06/21/17 02:49 AST 18 U/L (15-37) D 06/21/17 02:49 ALT 21 U/L (12-78) D 06/21/17 02:49 Alkaline Phosphatase 68 U/L (45-117) 06/21/17 02:49 Total Protein 7.3 g/dl (6.4-8.2) 06/21/17 02:49 Albumin 3.5 g/dl (3.4-5.0) 06/21/17 02:49 Current Medications Generic Name Dose Route Start Last Admin Trade Name Freq PRN Reason Stop Dose Admin Acetaminophen 650 mg 06/21/17 07:46 Tylenol - PO Q4H PRN FEVER OR PAIN Atorvastatin Calcium 20 mg 06/21/17 22:00 Lipitor - PO HS ALFONSO Heparin Sodium (Porcine) 1,000 unit 06/21/17 06:23 Heparin - IVPUSH PRN PRN Heparin Heparin Sodium (Porcine) 5,000 unit 06/21/17 06:23 Heparin - IVPUSH PRN PRN Heparin Heparin Sodium/Dextrose 500 mls @ 20 mls/hr 06/21/17 06:30 06/21/17 06:55 Heparin Infusion - IVPB 20 mls/hr TITR ALFONSO Administration Protocol 1,000 UNITS/HR Dextrose/Sodium Chloride 1,000 mls @ 150 mls/hr 06/21/17 13:45 D5-1/2ns - IV ASDIR ALFONSO Metoclopramide HCl 10 mg 06/21/17 11:30 06/21/17 13:29 Reglan - PO 10 mg TID@0730,1130,1700 ALFONSO Administration Multivitamins/Minerals/Vitamin C 1 tab 06/21/17 10:00 06/21/17 10:56 Tab-A-Vit - PO 1 tab DAILY ALFONSO Administration Ondansetron HCl 4 mg 06/21/17 07:46 Zofran Injection IVPB Q6H PRN NAUSEA Oxycodone HCl 5 mg 06/21/17 09:18 06/21/17 13:35 Roxicodone - PO 5 mg QID PRN Administration PAIN Ranitidine HCl 150 mg 06/21/17 10:00 06/21/17 10:56 Zantac - PO 150 mg BID ALFONSO Administration Triamterene/HCTZ 1 cap 06/21/17 10:00 06/21/17 10:55 Dyazide 25/37.5mg PO 1 cap DAILY ALFONSO Administration Ursodiol 600 mg 06/21/17 10:00 06/21/17 10:55 Actigal - PO 600 mg BID ALFONSO Administration Home Medications Medication Instructions Recorded Atorvastatin Ca [Lipitor] 20 mg PO DAILY 06/19/17 Calcium Carbonate/Vitamin D2 1 each PO BID 06/19/17 [Calcium Oys Shell 250 mg Tab] Famotidine 20 mg PO BID 06/19/17 Metoclopramide HCl 10 mg PO TID 06/19/17 Multivitamin [Poly-Vitamin] 1 each PO DAILY 06/19/17 Oxycodone HCl/Acetaminophen 1 each PO QID PRN 06/19/17 [Oxycodone-Acetaminophen 5-325] Triamterene/Hydrochlorothiazid 1 each PO DAILY 06/19/17 [Maxzide 37.5 mg-25 mg Tablet] Ursodiol [Actigall] 600 mg PO BID 06/19/17 Ondansetron [Zofran Odt -] 4 mg SL TID PRN #21 od.tablet 06/20/17 CT abd.pelvis: Triple phase CT abd confirms extensive portal vein thrombosis and splenic infarct. ASSESSMENT AND PLAN: 46 yo M admitted to med-surg for probable portal vein thrombosis. # Acute Abdominal pain s/p Gastric sleeve due to portal vein thrombosis on IVF , heparin drip. will consult sx ,if needed to add anything since just had a sleeve sx. # Acute portal vein thrombosis GI and hem/onc are consulted continue heparin drip per protocol # HTN Cont. dyazide # HLD Cont. lipitor DVT Px: on heparin gtt GI Px: on famotidine Case also discussed with Dr. Liz who performed EGD prior to gastric sleeve procedure. EDG at that time was unremarkable and negative for varices. ED physician contacted the surgeon who performed the gastric sleeve procedure and was told patient's thrombosis was unlikely related to the procedure itself.
[2017-06-21] MEDS: HEPARIN NA (PORCINE) 5,000 UNITS/ML 1ML VIAL IVPUSH PRN (16:40)
[2017-06-21] MEDS: DEXTROSE 5%-0.45% SALINE 1,000 ML IV SCH (19:10)
--- NOTE | 2017-06-21 20:56 | CONSULT ---
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 He presented to the ER over the weekend with abdominal pain and was discharged after initial CT did not report any suspicious findings. A day later , ER physician was called by rads informing about the CT finding of PVT. Due to the efforts of ER staff, as pt was unreachable, police were called and pt was brought in to the ER. In the ER a repeat CT scan was done which showed extensive portal veing thrombus, splenic infarct , no cirrhosis. Hematology consulted for the same. Patient seen and examined. Pt is a non smoker, active life style, not on any testosterone/steroid supplements Denies any FH of blood clots nor malignancies Father on coumadin for valvular abnormality as per the pt. 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 History of Recent Travel: No Home Medications - Allergies Allergies/Adverse Reactions: Allergies Allergy/AdvReac Type Severity Reaction Status Date / Time No Known Allergies Allergy Verified 06/21/17 02:42 - Home Medications Home Medications: Ambulatory Orders Atorvastatin Ca [Lipitor] 20 mg PO DAILY 06/19/17 Calcium Carbonate/Vitamin D2 [Calcium Oys Shell 250 mg Tab] 1 each PO BID Famotidine 20 mg PO BID 06/19/17 Metoclopramide HCl 10 mg PO TID 06/19/17 Multivitamin [Poly-Vitamin] 1 each PO DAILY 06/19/17 Oxycodone HCl/Acetaminophen [Oxycodone-Acetaminophen 5-325] 1 each PO QID PRN Triamterene/Hydrochlorothiazid [Maxzide 37.5 mg-25 mg Tablet] 1 each PO DAILY Ursodiol [Actigall] 600 mg PO BID 06/19/17 Ondansetron [Zofran Odt -] 4 mg SL TID PRN #21 od.tablet 06/20/17 Family Disease History - Family Disease History Family History: Denies Review of Systems - Review of Systems Gastrointestinal: reports: Abdominal Pain Physical Exam Vital Signs: Vital Signs Temperature 98.4 F 06/21/17 16:15 Pulse Rate 81 06/21/17 16:15 Respiratory Rate 18 06/21/17 17:29 Blood Pressure 122/58 06/21/17 16:15 O2 Sat by Pulse Oximetry (%) 96 06/21/17 17:29 Constitutional: Yes: Well Nourished, No Distress, Anxious Eyes: Yes: Conjunctiva Clear HENT: Yes: Atraumatic, Normocephalic Neck: Yes: Supple, Trachea Midline Cardiovascular: Yes: Regular Rate and Rhythm Respiratory: Yes: Regular, CTA Bilaterally Gastrointestinal: Yes: Normal Bowel Sounds, Soft Extremities: Yes: WNL Edema: No Neurological: Yes: Alert, Oriented Imaging - Results Cat Scan: Report Reviewed Problem List - Problems (1) Portal vein thrombosis Code(s): I81 - PORTAL VEIN THROMBOSIS (2) S/P bariatric surgery Code(s): Z98.84 - BARIATRIC SURGERY STATUS Assessment/Plan Acute Portal Vein thrombus s/p Gastric sleeve on 06.07 HTN HLD Plan: -though pt had a recent surgery, his young age and unusual site of thrombus, will send off JAK2, Hypercoag w/u ( [place], PTgene deficiency, [facility] leiden , [facility]), unable to send AT III , protein C and S in the setting of acute clot and on heparin therapy. -continue with heparin drip per protocol ( reportedly no varices in the pre- procedural Bariatic protocol EGD). -choice of oral AC discussed with the pt in very detail: Coumadin vs NOACs. Coumadin preferred. The role of INR monitoring, reversal, risks of bleeding were discussed in detail for each. -Re: NOACs , there is not much of a clinical experience in this setting in terms of prospective data,their use would be considered off-label and would need careful patient counselling and clinical monitoring , I did discuss this with the pt. -will re-visit tomorrow about the decision of the pt. -will need to switch to oral AC when more stable. Anticipating that he might not need Thrombolysis. -duration of AC : to be determined -will follow closely.
[2017-06-21] MEDS: ATORVASTATIN CA 20 MG TABLET (FP) PO SCH (21:04)
[2017-06-21] MEDS: ACETAMINOPHEN 325 MG TABLET (FP) PO PRN (22:58)
[2017-06-22] MEDS: HEPARIN NA (PORCINE) 5,000 UNITS/ML 1ML VIAL IVPUSH PRN ×2 (00:01→10:28)
[2017-06-22] MEDS: HEPARIN INFUSION - 500 ML IVPB SCH ×3 (00:05→10:20)
[2017-06-22] MEDS: ACETAMINOPHEN 325 MG TABLET (FP) PO PRN ×2 (07:01→14:50)
[2017-06-22] MEDS: METOCLOPRAMIDE HCL 10 MG TABLET (FP) PO SCH ×3 (08:32→17:58)
[2017-06-22] MEDS: oxyCODONE HCL 5 MG TABLET PO PRN ×3 (08:35→21:22)
[2017-06-22 08:45] LABS: MCH 29.9 pg (25.7-33.7); MCHC 34.7 g/dl (32.0-35.9); MEAN CELL VOLUME 86.3 fl (80-96); MEAN PLT VOLUME 9.6 fl (7.5-11.1); PLATELET COUNT 152 K/MM3 (134-434); RDW 12.9 % (11.9-15.9); WHITE BLOOD COUNT 8.8 K/mm3 (4.0-10.0)
--- NOTE | 2017-06-22 08:57 | PN ---
Progress Note, Physician History of Present Illness: Service: Gastroenterology Pt still continues to have lower abdominal pain without change in quality. He reports that the pain medication does work, however that it loses its efficacy in about 5-6 hrs. Pt denies any more nausea or vomiting, SOB, CP/discomfort, LE edema. - Current Medication List Current Medications: Active Medications Acetaminophen (Tylenol -) 650 mg PO Q4H PRN PRN Reason: FEVER OR PAIN Last Admin: 06/22/17 07:01 Dose: 650 mg Atorvastatin Calcium (Lipitor -) 20 mg PO HS [facility] Last Admin: 06/21/17 21:04 Dose: 20 mg Heparin Sodium (Porcine) (Heparin -) 1,000 unit IVPUSH PRN PRN PRN Reason: Heparin Heparin Sodium (Porcine) (Heparin -) 5,000 unit IVPUSH PRN PRN PRN Reason: Heparin Last Admin: 06/22/17 00:01 Dose: 5,000 unit Heparin Sodium/Dextrose (Heparin Infusion -) 500 mls @ 20 mls/hr IVPB TITR ALFONSO ; 1,000 UNITS/HR PRN Reason: Protocol Last Admin: 06/22/17 05:55 Dose: 26 mls/hr Dextrose/Sodium Chloride (D5-1/2ns -) 1,000 mls @ 150 mls/hr IV ASDIR [facility] Last Admin: 06/21/17 19:10 Dose: Not Given Metoclopramide HCl (Reglan -) 10 mg PO TID@0730,1130,1700 [facility] Last Admin: 06/22/17 08:32 Dose: 10 mg Multivitamins/Minerals/Vitamin C (Tab-A-Vit -) 1 tab PO DAILY [facility] Last Admin: 06/21/17 10:56 Dose: 1 tab Ondansetron HCl (Zofran Injection) 4 mg IVPB Q6H PRN PRN Reason: NAUSEA Oxycodone HCl (Roxicodone -) 5 mg PO QID PRN PRN Reason: PAIN Last Admin: 06/22/17 08:35 Dose: 5 mg Ranitidine HCl (Zantac -) 150 mg PO BID [facility] Last Admin: 06/21/17 21:04 Dose: 150 mg Triamterene/HCTZ (Dyazide 25/37.5mg) 1 cap PO DAILY [facility] Last Admin: 06/21/17 10:55 Dose: 1 cap Ursodiol (Actigal -) 600 mg PO BID [facility] Last Admin: 06/21/17 21:03 Dose: 600 mg - Objective Vital Signs: Vital Signs Temperature 98.2 F 06/22/17 06:35 Pulse Rate 73 06/22/17 06:35 Respiratory Rate 20 06/22/17 06:35 Blood Pressure 129/70 06/22/17 06:35 O2 Sat by Pulse Oximetry (%) 96 06/22/17 01:00 Constitutional: Yes: Well Nourished, No Distress, Calm Eyes: Yes: Conjunctiva Clear, EOM Intact, PERRL. No: Sclera Icterus Cardiovascular: Yes: Regular Rate and Rhythm. No: Murmur Respiratory: Yes: Regular, CTA Bilaterally. No: Rales, Rhonchi, Wheezes Gastrointestinal: Yes: Normal Bowel Sounds, Soft, Tenderness (upper quadrants), Other (Trocar incision sites c/d/i sealed with surgical glue). No: Distention, Hepatomegaly Edema: No Peripheral Pulses WNL: Yes Neurological: Yes: Alert, Oriented Psychiatric: Yes: Alert, Oriented Labs: INR, PTT INR 1.68 (0.82-1.09) H 06/21/17 02:49 Problem List - Problems (1) Portal vein thrombosis Assessment/Plan: 46yo M with portal vein thrombosis on heparin gtt --Continues to have abdominal pain w/o change in quality/character --Heparin gtt until therapeutic --Patient is clinically stable at this point; thrombolysis not warranted currently --Trend LFTs, aPTT --Advance to clear liquids as tolerated Code(s): I81 - PORTAL VEIN THROMBOSIS Visit type - Emergency Visit Emergency Visit: No - New Patient This patient is new to me today: No - Critical Care Critical Care patient: No
[2017-06-22] MEDS ORDERED: PT OWN MED DRAWER 7, Y5N ONE (09:03)
[2017-06-22] MEDS: URSODIOL 300 MG CAPSULE PO SCH ×2 (09:08→21:21)
[2017-06-22] MEDS: MULTIVITAMINS (DAILY MVI) TABLET (FP) PO SCH (09:08)
[2017-06-22] MEDS: RANITIDINE HCL 150 MG TABLET (FP) PO SCH ×2 (09:08→21:22)
[2017-06-22] MEDS: TRIAMTERENE AND HCTZ - 37.5 MG/25 MG CAPSULE PO SCH (09:09)
[2017-06-22 09:10] LABS: AMYLASE 70 U/L (25-115); ANION GAP 9 (8-16); CALCIUM 8.6 mg/dL (8.5-10.1); CO2 34 mmol/L (21-32); CREATININE 0.8 mg/dL (0.7-1.3); GLUCOSE,RANDOM 81 mg/dL (74-106)
[2017-06-22 09:16] LABS: INR 1.73 (0.82-1.09); PROTHROMBIN TIME (PATIENT) 19.2 SEC (9.98-11.88)
--- NOTE | 2017-06-22 12:25 | CONSULT ---
Consult Consult Specialty:: Surgery Reason for Consultation:: Abdominal pain, portal vein thrombosis - History of Present Illness Chief Complaint: Abdominal pain History of Present Illness: 46 male s/p sleeve gastrectomy 06/07/2017 in [facility] Presented to the hospital with abdominal pain Had been tolerating diet and lost 22 pounds No nausea/vomiting Found to have a portal vein thrombus on imaging with splenic infarct - History Source History Provided By: Patient, Medical Record Limitations to Obtaining History: No Limitations - Past Medical History Cardio/Vascular: Yes: HTN, Hyperlipdemia - Past Surgical History Past Surgical History: Yes: Vasectomy Additional Surgical History: Gastric sleeve creation 06/07/17 - Alcohol/Substance Use Hx Alcohol Use: No History of Substance Use: reports: None - Smoking History Smoking history: Never smoked Have you smoked in the past 12 months: No - Social History 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 History of Recent Travel: No Home Medications - Allergies Allergies/Adverse Reactions: Allergies Allergy/AdvReac Type Severity Reaction Status Date / Time No Known Allergies Allergy Verified 06/21/17 02:42 - Home Medications Home Medications: Ambulatory Orders Atorvastatin Ca [Lipitor] 20 mg PO DAILY 06/19/17 Calcium Carbonate/Vitamin D2 [Calcium Oys Shell 250 mg Tab] 1 each PO BID Famotidine 20 mg PO BID 06/19/17 Metoclopramide HCl 10 mg PO TID 06/19/17 Multivitamin [Poly-Vitamin] 1 each PO DAILY 06/19/17 Oxycodone HCl/Acetaminophen [Oxycodone-Acetaminophen 5-325] 1 each PO QID PRN Triamterene/Hydrochlorothiazid [Maxzide 37.5 mg-25 mg Tablet] 1 each PO DAILY Ursodiol [Actigall] 600 mg PO BID 06/19/17 Ondansetron [Zofran Odt -] 4 mg SL TID PRN #21 od.tablet 06/20/17 Family Disease History - Family Disease History Family History: Unremarkable Review of Systems - Review of Systems Constitutional: denies: Chills, Fever HENT: reports: No Symptoms Cardiovascular: denies: Chest Pain Respiratory: denies: Cough Gastrointestinal: reports: Abdominal Pain. denies: Nausea, Vomiting Neurological: denies: Change in LOC Pain Intensity: 4 Physical Exam Vital Signs: Vital Signs Temperature 98.2 F 06/22/17 06:35 Pulse Rate 73 06/22/17 06:35 Respiratory Rate 20 06/22/17 06:35 Blood Pressure 129/70 06/22/17 06:35 O2 Sat by Pulse Oximetry (%) 96 06/22/17 01:00 Constitutional: No: Calm HENT: Yes: WNL Neck: Yes: Supple Cardiovascular: Yes: Regular Rate and Rhythm Respiratory: Yes: CTA Bilaterally Gastrointestinal: Yes: Soft, Tenderness (Diffuse). No: Tenderness, Rebound Extremities: Yes: WNL Neurological: Yes: Alert, Oriented Labs: CBC, BMP 06/22/17 06:30 06/22/17 06:30 Imaging - Results Cat Scan: Report Reviewed, Image Reviewed Problem List - Problems (1) Portal vein thrombosis Code(s): I81 - PORTAL VEIN THROMBOSIS (2) S/P bariatric surgery Code(s): Z98.84 - BARIATRIC SURGERY STATUS Assessment/Plan 46 male with portal vein thrombus On IV heparin Being followed by hematology Coagulation workup
[2017-06-22 12:50] LABS: ALBUMIN 3.1 g/dl (3.4-5.0); ALK PHOS 75 U/L (45-117); BILIRUBIN,DIRECT 0.6 mg/dL (0.0-0.2); BILIRUBIN,TOTAL 1.3 mg/dL (0.2-1.0); SGOT/AST 14 U/L (15-37); SGPT/ALT 20 U/L (12-78); TOT PROT 6.6 g/dl (6.4-8.2)
[2017-06-22] MEDS: DEXTROSE 5%-0.45% SALINE 1,000 ML IV SCH ×2 (13:11→21:21)
--- NOTE | 2017-06-22 13:39 | PN ---
GI Progress Note Subjective: Still with upper abdominal pain No acute events reported overnight - Objective Vital Signs: Vital Signs Temperature 98.2 F 06/22/17 06:35 Pulse Rate 73 06/22/17 06:35 Respiratory Rate 20 06/22/17 06:35 Blood Pressure 129/70 06/22/17 06:35 O2 Sat by Pulse Oximetry (%) 96 06/22/17 01:00 Constitutional: Calm Eyes: No: Sclera Icterus Cardiovascular: No: Regular Rate and Rhythm Respiratory: No: CTA Bilaterally Gastrointestinal Inspection: No: Distention ...Auscultate: Yes: Normoactive Bowel Sounds ...Palpate: Yes: Tenderness (TTP in epigastrium) ...Percussion: No: Tympanitic Edema: No Neurological: Yes: Alert, Oriented Labs: CBC, BMP 06/22/17 06:30 06/22/17 06:30 INR, PTT INR 1.73 (0.82-1.09) H 06/22/17 06:30 Hepatic Panel Total Bilirubin 1.3 mg/dL (0.2-1.0) H 06/22/17 06:30 Direct Bilirubin 0.6 mg/dL (0.0-0.2) H 06/22/17 06:30 AST 14 U/L (15-37) L D 06/22/17 06:30 ALT 20 U/L (12-78) 06/22/17 06:30 Alkaline Phosphatase 75 U/L (45-117) 06/22/17 06:30 Albumin 3.1 g/dl (3.4-5.0) L 06/22/17 06:30 Laboratory Tests 06/21/17 13:18 Hepatitis C Antibody <0.1 Problem List - Problems (1) Portal vein thrombosis Assessment/Plan: Still with epigastric pain Liver function appears intact without peritoneal signs / clinical signs of bowel infarction I spoke with Dr. Duke Grant, hepatobiliary/transplant surgeon @ [facility]. He agreed with current management: anticoagulation / heme evaluation as opposed to thrombolysis given Mr. Fontenot' overall clinical stability. Monitor LFT's Trial of clears Monitor abdominal exam Code(s): I81 - PORTAL VEIN THROMBOSIS
--- NOTE | 2017-06-22 14:03 | PN ---
Progress Note (short form) - Note Progress Note: Patient seen and examined. c/o of abdominal pain. Chart/labs reviewed. PTT not therapeutic yet. O/E: General: NAD HEENT: No scleral icterus Cardiac: RRR Lungs: clear Abdomen: + tenderness LE: no Edema or calf tenderness Last Vital Signs Temp Pulse Resp BP Pulse Ox 98.2 F 73 20 129/70 96 06/22/17 06:35 06/22/17 06:35 06/22/17 06:35 06/22/17 06:35 06/22/17 01:00 CBC, BMP 06/22/17 06:30 06/22/17 06:30 INR, PTT INR 1.73 (0.82-1.09) H 06/22/17 06:30 Current Medications Generic Name Dose Route Start Last Admin Trade Name Freq PRN Reason Stop Dose Admin Acetaminophen 650 mg 06/21/17 07:46 06/22/17 07:01 Tylenol - PO 650 mg Q4H PRN Administration FEVER OR PAIN Atorvastatin Calcium 20 mg 06/21/17 22:00 06/21/17 21:04 Lipitor - PO 20 mg HS [facility] Administration Heparin Sodium (Porcine) 1,000 unit 06/21/17 06:23 Heparin - IVPUSH PRN PRN Heparin Heparin Sodium (Porcine) 5,000 unit 06/21/17 06:23 06/22/17 10:28 Heparin - IVPUSH 5,000 unit PRN PRN Administration Heparin Heparin Sodium/Dextrose 500 mls @ 20 mls/hr 06/21/17 06:30 06/22/17 10:20 Heparin Infusion - IVPB 29 mls/hr TITR [facility] Administration Protocol 1,000 UNITS/HR Dextrose/Sodium Chloride 1,000 mls @ 150 mls/hr 06/21/17 13:45 06/22/17 13:11 D5-1/2ns - IV 150 mls/hr ASDIR [facility] Administration Metoclopramide HCl 10 mg 06/21/17 11:30 06/22/17 13:11 Reglan - PO 10 mg TID@0730,1130,1700 [facility] Administration Multivitamins/Minerals/Vitamin C 1 tab 06/21/17 10:00 06/22/17 09:08 Tab-A-Vit - PO 1 tab DAILY [facility] Administration Ondansetron HCl 4 mg 06/21/17 07:46 Zofran Injection IVPB Q6H PRN NAUSEA Oxycodone HCl 5 mg 06/21/17 09:18 06/22/17 08:35 Roxicodone - PO 5 mg QID PRN Administration PAIN Ranitidine HCl 150 mg 06/21/17 10:00 06/22/17 09:08 Zantac - PO 150 mg BID [facility] Administration Triamterene/HCTZ 1 cap 06/21/17 10:00 06/22/17 09:09 Dyazide 25/37.5mg PO 1 cap DAILY [facility] Administration Ursodiol 600 mg 06/21/17 10:00 06/22/17 09:08 Actigal - PO 600 mg BID [facility] Administration Assessment/Plan: Acute Portal Vein thrombus s/p Gastric sleeve on 06/07 HTN HLD Plan: -continue UFH, PTT goal 1.5x2 times his baseline PTT. -will f/u on hypercoag w/u ,all requisitions has been faxed yesterday -unable to send AT III , protein C and S in the setting of acute clot and on heparin therapy. -LFTs stable, daily LFts/ordered direct bili, liver on imaging is normal -discussed about the oral choice of AC again, he requested more time to think and wanted to know if NOACs would be covered by his insurance. -appreciate GI recs, consult note noted. -d/w Hospitalist. Problem List - Problems (1) Portal vein thrombosis Code(s): I81 - PORTAL VEIN THROMBOSIS (2) S/P bariatric surgery Code(s): Z98.84 - BARIATRIC SURGERY STATUS
[2017-06-22] MEDS ORDERED: WARFARIN NA 5 MG, WARFARIN NA 2.5 MG PO ONE (18:00)
[2017-06-22] MEDS ORDERED: WARFARIN NA 7.5 MG TABLET (FP) PO ONE ×2 (18:00→19:00)
[2017-06-22] MEDS ORDERED: POTASSIUM CHLORIDE TABS 20 MEQ TABLET.ER (FP) PO ONE ×2 (18:42→22:00)
--- NOTE | 2017-06-22 18:52 | PN ---
Teaching Attending Note Name of Resident: Kylee Faria ATTENDING PHYSICIAN STATEMENT I saw and evaluated the patient. I reviewed the resident's note and discussed the case with the resident. I agree with the resident's findings and plan as documented. SUBJECTIVE: no fever or chills. Abd pain continue with same intensity . no N/V , no diarrhea OBJECTIVE: NAD CV : RRR Lungs : CTAB ext : no edema Abd : soft, TTP in epigastric area. ASSESSMENT AND PLAN: 46 yo gentleman with h/o GAstric sleeve sx , HTN who was admitted with abd painand was found to have portal vein thrombosis and splenic vein thrombosis 1- Acute portal vein thrombosis and splenic vein thrombosis, with partial splenic infarct . possibly after sx but due to young age hypercoagulable state needs to be r/o . - cont heparin. - d/w him the need for long winder tender AC, hisp optionf of NOAcs, and coumadin were d /w him ( pharmacy called, lovenox and NOACs are not covered) . He is agreeable to coumadin . - start 7.5 mg of coumadin tonight - INR in am - hypercoagulable w/u started . follow results - appreciate Heme and Gi input, no thrombolysis 2- Abd pain, likely due to the thrmobosis. unlikely acute pancreatitis . repeat Lipase slightly above previous ER visit - cont IV hydration. decrease rate in am to 100 cc h/r - liquid diet - dc all diurestics while being hydrated - chck TG 3- HTN: hold diuretics and monitor BP DIpo : HLOC
[2017-06-22] MEDS: ATORVASTATIN CA 20 MG TABLET (FP) PO SCH (21:22)
[2017-06-23] MEDS: HEPARIN INFUSION - 500 ML IVPB SCH ×2 (00:35→06:20)
[2017-06-23] MEDS: DEXTROSE 5%-0.45% SALINE 1,000 ML IV SCH ×2 (06:12→18:02)
[2017-06-23] MEDS: oxyCODONE HCL 5 MG TABLET PO PRN ×3 (06:21→18:00)
[2017-06-23 07:40] LABS: BASOPHIL 0.4 % (0-2.0); EOSINOPHIL 0.4 % (0-4.5); MCH 29.3 pg (25.7-33.7); MCHC 34.9 g/dl (32.0-35.9); MEAN CELL VOLUME 83.9 fl (80-96); MEAN PLT VOLUME 9.3 fl (7.5-11.1); PLATELET COUNT 161 K/MM3 (134-434); RDW 12.7 % (11.9-15.9); WHITE BLOOD COUNT 8.1 K/mm3 (4.0-10.0)
[2017-06-23 08:11] LABS: INR 2.27 (0.82-1.09); PROTHROMBIN TIME (PATIENT) 25.4 SEC (9.98-11.88)
[2017-06-23 08:16] LABS: ALBUMIN 2.8 g/dl (3.4-5.0); ANION GAP 11 (8-16); CALCIUM 8.1 mg/dL (8.5-10.1); CO2 31 mmol/L (21-32); GLUCOSE,RANDOM 103 mg/dL (74-106)
[2017-06-23 08:22] LABS: ALK PHOS 66 U/L (45-117); BILIRUBIN,DIRECT 0.4 mg/dL (0.0-0.2); BILIRUBIN,TOTAL 0.8 mg/dL (0.2-1.0); CREATININE 0.8 mg/dL (0.7-1.3); LDH 190 U/L (87-241); SGOT/AST 11 U/L (15-37); SGPT/ALT 17 U/L (12-78)
[2017-06-23 08:34] LABS: ALBUMIN 2.8 g/dl (3.4-5.0); BILIRUBIN,DIRECT 0.4 mg/dL (0.0-0.2); BILIRUBIN,TOTAL 1.2 mg/dL (0.2-1.0)
[2017-06-23] MEDS: KCL 10 MEQ IVPB 100 ML IVPB SCH ×3 (09:18→13:34)
[2017-06-23] MEDS: METOCLOPRAMIDE HCL 10 MG TABLET (FP) PO SCH (09:18)
[2017-06-23] MEDS: ACETAMINOPHEN 325 MG TABLET (FP) PO PRN ×2 (09:18→17:59)
[2017-06-23] MEDS: URSODIOL 300 MG CAPSULE PO SCH (09:19)
[2017-06-23] MEDS: MULTIVITAMINS (DAILY MVI) TABLET (FP) PO SCH (09:19)
[2017-06-23] MEDS: POTASSIUM CHLORIDE TABS 20 MEQ TABLET.ER (FP) PO SCH ×2 (09:19→21:05)
[2017-06-23] MEDS: RANITIDINE HCL 150 MG TABLET (FP) PO SCH (09:19)
--- NOTE | 2017-06-23 10:23 | PN ---
GI Progress Note Subjective: No acute events States when he gets the pain in the abdomen it seems to be the same or worse. Oxycodone seems to alleviate this + BM Tolerated clear liquids. The liquid diet did not seem to worsen the pain - Objective Vital Signs: Vital Signs Temperature 99.8 F H 06/23/17 06:22 Pulse Rate 81 06/23/17 06:22 Respiratory Rate 20 06/23/17 06:22 Blood Pressure 123/68 06/23/17 06:22 O2 Sat by Pulse Oximetry (%) 96 06/22/17 21:00 Constitutional: Calm Eyes: No: Sclera Icterus Cardiovascular: Yes: Regular Rate and Rhythm Respiratory: Yes: CTA Bilaterally Gastrointestinal Inspection: Yes: Scars (healed trochar scars). No: Distention ...Auscultate: Yes: Hyperactive Bowel Sounds ...Palpate: No: Hepatomegaly, Splenomegaly, Tenderness ...Percussion: No: Tympanitic Edema: No Neurological: Yes: Alert, Oriented Labs: CBC, BMP 06/23/17 06:00 06/23/17 06:00 INR, PTT INR 2.27 (0.82-1.09) H D 06/23/17 06:00 Laboratory Tests 06/23/17 06:00 Lactic Acid 1.1 Hepatic Panel Total Bilirubin 1.2 mg/dL (0.2-1.0) H D 06/23/17 06:00 Direct Bilirubin 0.4 mg/dL (0.0-0.2) H 06/23/17 06:00 AST 12 U/L (15-37) L 06/23/17 06:00 ALT 17 U/L (12-78) 06/23/17 06:00 Alkaline Phosphatase 69 U/L (45-117) 06/23/17 06:00 Albumin 2.8 g/dl (3.4-5.0) L 06/23/17 06:00 Problem List - Problems (1) Portal vein thrombosis Assessment/Plan: Clinically stable on A/C currently. No lactic acidosis and seemed to tolerate liquid diet Checking doppler of portal vein to assess if any change since Mr. Fontenot has been on A/C Consider vascular surgery evaluation Advance to full liquids Stopped ursodiol, reglan and BID zantac Code(s): I81 - PORTAL VEIN THROMBOSIS
--- NOTE | 2017-06-23 12:16 | EKG ---
Test Reason : Blood Pressure : / mmHG Vent. Rate : 069 BPM Atrial Rate : 069 BPM P-R Int : 168 ms QRS Dur : 110 ms QT Int : 410 ms P-R-T Axes : 009 -08 003 degrees QTc Int : 439 ms NORMAL SINUS RHYTHM INFERIOR INFARCT , AGE UNDETERMINED ABNORMAL ECG WHEN COMPARED WITH ECG OF 21-JUN-2017 06:41, T WAVE AMPLITUDE HAS DECREASED IN LATERAL LEADS Confirmed by CECE BECKER, GIORGI ([id number]) on 06/23/2017 12:15:38 PM Referred By: HUGH TRAVIS Confirmed By:GIORGI ZHAO MD
--- NOTE | 2017-06-23 12:27 | EKG ---
Test Reason : Blood Pressure : / mmHG Vent. Rate : 068 BPM Atrial Rate : 068 BPM P-R Int : 164 ms QRS Dur : 106 ms QT Int : 412 ms P-R-T Axes : 001 014 030 degrees QTc Int : 438 ms NORMAL SINUS RHYTHM NORMAL ECG WHEN COMPARED WITH ECG OF 19-JUN-2017 17:27, NO SIGNIFICANT CHANGE WAS FOUND Confirmed by GIORGI ZHAO MD ([id number]) on 06/23/2017 12:26:47 PM Referred By: Confirmed By:GIORGI ZHAO MD
[2017-06-23] MEDS ORDERED: PT OWN MED DRAWER 7, Y5N ONE (13:16)
--- NOTE | 2017-06-23 16:14 | PN ---
Teaching Attending Note Name of Resident: Kylee Faria ATTENDING PHYSICIAN STATEMENT I saw and evaluated the patient. I reviewed the resident's note and discussed the case with the resident. I agree with the resident's findings and plan as documented. SUBJECTIVE: no fever or chills . has abd pain in epigastric area. no N/V. tolerated diet OBJECTIVE: NA, looks comfortable in bed CV : RRR Lungs : CTAB ext : no edema Abd : soft, TTP in epigastric area. No rebound tenderness or guarding ASSESSMENT AND PLAN: 46 yo gentleman with h/o GAstric sleeve sx , HTN who was admitted with abd painand was found to have portal vein thrombosis and splenic vein thrombosis 1- Acute portal vein thrombosis and splenic vein thrombosis, with partial splenic infarct . possibly after sx but due to young age hypercoagulable state needs to be r/o . - cont heparin. - give 2.5 mg of coumadin today . overlap with heparin x 24 hr - INR in am - hypercoagulable w/u started . follow results - appreciate Heme and Gi input, no thrombolysis recommended. vacular consult for further input - repeat Doppler US pending 2- Abd pain, likely due to the thrombosis. unlikely acute pancreatitis . - decrease rate in am to 100 cc h/r - Full liquid diet -off all diurestics while being hydrated - cont oxycodone. avoid IV narcotics. patient is aware 3- HTN: hold diuretics and monitor BP DIpo : HLOC .
--- NOTE | 2017-06-23 16:32 | PN ---
Physical Exam: SUBJECTIVE: Patient seen and examined. No acute events over night. Says he is still in pain and it has not got better. OBJECTIVE: Vital Signs Period Temp Pulse Resp BP Sys/Pino Pulse Ox Last 24 Hr 98.4 F-99.8 F 68-81 16-20 107-123/61-68 96-96 GENERAL: The patient is awake, alert, and fully oriented, in no acute distress. HEAD: Normal with no signs of trauma. EYES: PERRL, extraocular movements intact, sclera anicteric, conjunctiva clear. No ptosis. ENT: oropharynx clear without exudates, moist mucous membranes. NECK: supple. LUNGS: Breath sounds equal, clear to auscultation bilaterally, no wheezes, no crackles, no accessory muscle use. HEART: Regular rate and rhythm, S1, S2 without murmur, rub or gallop. ABDOMEN: Soft, tender to palpation in all quadrants, nondistended, normoactive bowel sounds, no guarding, no rebound, no hepatosplenomegaly, no masses. EXTREMITIES: 2+ pulses, warm, well-perfused, no edema. NEUROLOGICAL: Cranial nerves II through XII grossly intact. Normal speech, gait not observed. PSYCH: Normal mood, normal affect. SKIN: Warm, dry, normal turgor, no rashes or lesions noted Laboratory Results - last 24 hr 06/22/17 06/22/17 06/23/17 06:30 15:30 06:00 WBC RBC Hgb Hct MCV MCH MCHC RDW Plt Count MPV Neutrophils % Lymphocytes % Monocytes % Eosinophils % Basophils % INR PTT (Actin FS) 69.4 H D 51.0 H Sodium Potassium Chloride Carbon Dioxide Anion Gap BUN Creatinine Creat Clearance w eGFR Random Glucose Lactic Acid Calcium Total Bilirubin Direct Bilirubin AST ALT Alkaline Phosphatase LD Total Total Protein Albumin Triglycerides Tumor Marker AFP 1.6 06/23/17 06/23/17 06/23/17 06:00 06:00 06:00 WBC 8.1 RBC 4.47 Hgb 13.1 Hct 37.5 MCV 83.9 MCH 29.3 MCHC 34.9 RDW 12.7 Plt Count 161 MPV 9.3 Neutrophils % 73.0 Lymphocytes % 13.2 Monocytes % 13.0 H Eosinophils % 0.4 D Basophils % 0.4 INR PTT (Actin FS) Sodium 136 Potassium 2.9 L* Chloride 94 L Carbon Dioxide 31 Anion Gap 11 BUN 6 L D Creatinine 0.8 Creat Clearance w eGFR > 60 Random Glucose 103 D Lactic Acid Calcium 8.1 L Total Bilirubin 0.8 D 1.2 H D Direct Bilirubin 0.4 H D 0.4 H AST 11 L D 12 L ALT 17 17 Alkaline Phosphatase 66 69 LD Total 190 Total Protein 6.0 L 6.0 L Albumin 2.8 L 2.8 L Triglycerides 78 Tumor Marker AFP 06/23/17 06/23/17 06:00 06:00 WBC RBC Hgb Hct MCV MCH MCHC RDW Plt Count MPV Neutrophils % Lymphocytes % Monocytes % Eosinophils % Basophils % INR 2.27 H D PTT (Actin FS) Sodium Potassium Chloride Carbon Dioxide Anion Gap BUN Creatinine Creat Clearance w eGFR Random Glucose Lactic Acid 1.1 Calcium Total Bilirubin Direct Bilirubin AST ALT Alkaline Phosphatase LD Total Total Protein Albumin Triglycerides Tumor Marker AFP Active Medications Generic Name Dose Route Start Last Admin Trade Name Freq PRN Reason Stop Dose Admin Acetaminophen 650 mg 06/21/17 07:46 06/23/17 09:18 Tylenol - PO 650 mg Q4H PRN Administration FEVER OR PAIN Atorvastatin Calcium 20 mg 06/21/17 22:00 06/22/17 21:22 Lipitor - PO 20 mg HS [facility] Administration Heparin Sodium (Porcine) 1,000 unit 06/21/17 06:23 Heparin - IVPUSH PRN PRN Heparin Heparin Sodium (Porcine) 5,000 unit 06/21/17 06:23 06/22/17 10:28 Heparin - IVPUSH 5,000 unit PRN PRN Administration Heparin Heparin Sodium/Dextrose 500 mls @ 20 mls/hr 06/21/17 06:30 06/23/17 09:42 Heparin Infusion - IVPB 1,450 units/hr TITR ALFONSO Titration Protocol 1,000 UNITS/HR Dextrose/Sodium Chloride 1,000 mls @ 75 mls/hr 06/23/17 12:27 D5-1/2ns - IV ASDIR [facility] Multivitamins/Minerals/Vitamin C 1 tab 06/21/17 10:00 06/23/17 09:19 Tab-A-Vit - PO 1 tab DAILY [facility] Administration Ondansetron HCl 4 mg 06/21/17 07:46 Zofran Injection IVPB Q6H PRN NAUSEA Oxycodone HCl 5 mg 06/23/17 06:18 06/23/17 09:19 Roxicodone - PO 5 mg Q6H PRN Administration PAIN Potassium Chloride 40 meq 06/23/17 10:00 06/23/17 09:19 K-Dur - PO 06/23/17 22:01 40 meq BID ALFONSO Administration Warfarin Sodium 2.5 mg 06/23/17 18:00 Coumadin - PO 06/23/17 18:01 ONCE@1800 ONE ASSESSMENT/PLAN: 46 yo gentleman with h/o Gastric sleeve sx , HTN who was admitted with abdominal pain and was found to have portal vein thrombosis and splenic vein thrombosis. #Acute portal vein thrombosis and splenic vein thrombosis, with partial splenic infarct . -Likely from surgery but hypercoaguable state needs to be ruled out -Continue Heparin Drip -Started 2.5mg of Coumadin today. -Follow-up liver doppler -F/U labs in the AM -Follow coag workup -Thrombolysis not recommended at this time as per Heme -Consider vascular eval as per GI #Abdominal pain likely from thrombosis - Dextrose/Sodium @ 75cc/hour - Full liquid diet -Held diuretics while hydrating -Continue pain management (oxycodone 5mg q6), Avoid IV pain meds #HTN: -Will Monitor BP -Hold Diuretics #FEN: -Dextrose/Sodium @75cc/hour -replete Potassium 40meq BID -Full Liquid diet #PPX: -Heparin drip -Coumadin 2.5mg Visit type - Emergency Visit Emergency Visit: Yes ED Registration Date: 06/21/17 Care time: The patient presented to the Emergency Department on the above date and was hospitalized for further evaluation of their emergent condition. - New Patient This patient is new to me today: No - Critical Care Critical Care patient: No
--- NOTE | 2017-06-23 16:34 | PN ---
Progress Note (short form) - Note Progress Note: Patient seen and examined. c/o of abdominal pain. tolerating the slightly advanced diet. Chart/labs reviewed. PTT not therapeutic yet. O/E: General: NAD HEENT: No scleral icterus Cardiac: RRR Lungs: clear Abdomen: + tenderness LE: no Edema or calf tenderness Last Vital Signs Temp Pulse Resp BP Pulse Ox 98.2 F 73 20 129/70 96 06/22/17 06:35 06/22/17 06:35 06/22/17 06:35 06/22/17 06:35 06/22/17 01:00 CBC, BMP 06/22/17 06:30 06/22/17 06:30 INR, PTT INR 1.73 (0.82-1.09) H 06/22/17 06:30 Current Medications Generic Name Dose Route Start Last Admin Trade Name Freq PRN Reason Stop Dose Admin Acetaminophen 650 mg 06/21/17 07:46 06/22/17 07:01 Tylenol - PO 650 mg Q4H PRN Administration FEVER OR PAIN Atorvastatin Calcium 20 mg 06/21/17 22:00 06/21/17 21:04 Lipitor - PO 20 mg HS ALFONSO Administration Heparin Sodium (Porcine) 1,000 unit 06/21/17 06:23 Heparin - IVPUSH PRN PRN Heparin Heparin Sodium (Porcine) 5,000 unit 06/21/17 06:23 06/22/17 10:28 Heparin - IVPUSH 5,000 unit PRN PRN Administration Heparin Heparin Sodium/Dextrose 500 mls @ 20 mls/hr 06/21/17 06:30 06/22/17 10:20 Heparin Infusion - IVPB 29 mls/hr TITR ALFONSO Administration Protocol 1,000 UNITS/HR Dextrose/Sodium Chloride 1,000 mls @ 150 mls/hr 06/21/17 13:45 06/22/17 13:11 D5-1/2ns - IV 150 mls/hr ASDIR ALFONSO Administration Metoclopramide HCl 10 mg 06/21/17 11:30 06/22/17 13:11 Reglan - PO 10 mg TID@0730,1130,1700 ALFONSO Administration Multivitamins/Minerals/Vitamin C 1 tab 06/21/17 10:00 06/22/17 09:08 Tab-A-Vit - PO 1 tab DAILY ALFONSO Administration Ondansetron HCl 4 mg 06/21/17 07:46 Zofran Injection IVPB Q6H PRN NAUSEA Oxycodone HCl 5 mg 06/21/17 09:18 06/22/17 08:35 Roxicodone - PO 5 mg QID PRN Administration PAIN Ranitidine HCl 150 mg 06/21/17 10:00 06/22/17 09:08 Zantac - PO 150 mg BID ALFONSO Administration Triamterene/HCTZ 1 cap 06/21/17 10:00 06/22/17 09:09 Dyazide 25/37.5mg PO 1 cap DAILY ALFONSO Administration Ursodiol 600 mg 06/21/17 10:00 06/22/17 09:08 Actigal - PO 600 mg BID ALFONSO Administration Assessment/Plan: Acute Portal Vein thrombus s/p Gastric sleeve on 06/07 HTN HLD hypokalemia Plan: -continue UFH being bridged with coumadin, consider giving lower dose 2.5mg tonight, INR in the am, 48hrs of overlap. -Doppler US ordered -will await vascular recs -appreciate GI recs Problem List - Problems (1) Portal vein thrombosis Code(s): I81 - PORTAL VEIN THROMBOSIS (2) S/P bariatric surgery Code(s): Z98.84 - BARIATRIC SURGERY STATUS
[2017-06-23] MEDS ORDERED: WARFARIN NA 3 MG TABLET PO ONE ×2 (18:00)
--- NOTE | 2017-06-23 18:21 | PN ---
Progress Note (short form) - Note Progress Note: Vascular Surgery s/p sleeve gastrectomy on 06/07. there after developed abd pain with portal vein thrombosis and splenic infarct on CTA. Pt currently on warfarin. No surgical intervention needed. Anticoagulation for life. Jose Mckeon DO
[2017-06-23] MEDS: ATORVASTATIN CA 20 MG TABLET (FP) PO SCH (22:00)
[2017-06-24 00:11] LABS: HEP B SURFACE AB Reactive (.)
[2017-06-24] MEDS: oxyCODONE HCL 5 MG TABLET PO PRN ×4 (00:28→18:56)
[2017-06-24] MEDS: DEXTROSE 5%-0.45% SALINE 1,000 ML IV SCH ×2 (06:13→13:09)
[2017-06-24] MEDS: ACETAMINOPHEN 325 MG TABLET (FP) PO PRN ×3 (06:13→18:55)
[2017-06-24] MEDS: HEPARIN INFUSION - 500 ML IVPB SCH (07:44)
[2017-06-24 08:03] LABS: MCHC 34.1 g/dl (32.0-35.9); MEAN CELL VOLUME 85.2 fl (80-96); MEAN PLT VOLUME 9.3 fl (7.5-11.1); PLATELET COUNT 182 K/MM3 (134-434); RDW 12.9 % (11.9-15.9); WHITE BLOOD COUNT 7.3 K/mm3 (4.0-10.0)
[2017-06-24 08:14] LABS: ALBUMIN 2.5 g/dl (3.4-5.0); ALK PHOS 70 U/L (45-117); ANION GAP 10 (8-16); BILIRUBIN,TOTAL 0.7 mg/dL (0.2-1.0); CALCIUM 8.3 mg/dL (8.5-10.1); CO2 29 mmol/L (21-32); CREATININE 0.7 mg/dL (0.7-1.3); GLUCOSE,RANDOM 125 mg/dL (74-106); PHOSPHOROUS 2.2 mg/dL (2.5-4.9); SGOT/AST 16 U/L (15-37); SGPT/ALT 16 U/L (12-78); TOT PROT 5.8 g/dl (6.4-8.2)
[2017-06-24 08:34] LABS: PROTHROMBIN TIME (PATIENT) 48.6 SEC (9.98-11.88)
[2017-06-24 08:46] LABS: INR 4.29 (0.82-1.09)
--- NOTE | 2017-06-24 10:11 | PATH ---
Surgical Pathology Report Patient Name: ALEXANDREA MERA [facility]. Rec. #: [id number] /Age/Gender: 1970 (Age: 46) / M Account: [id number] Location: [facility] MED/SURG Taken: 06/22/2017 Received: 06/22/2017 Reported: 06/24/2017 Physicians: Mala Townsend M.D. Specimen(s) Received PERIPHERAL BLOOD 2 GREEN 2 LAVENDER Clinical History Portal vein thrombosis, r/o MPN, r/PNH Final Diagnosis COMPREHENSIVE FLOW CYTOMETRY PERFORMED AND INTERPRETED AT [place], [place] ([id number]) SHOWED THE FOLLOWING: INTERPRETATION: In the sample analyzed there is no evidence of B or T-cell proliferative disorders or increased blasts. The monocytes 11% of total cells. Phenotype: In the sample analyzed, there is a mixed population of granulocytes, monocytes and lymphoid cells. CD34+ myeloblasts are < 0.1%. Granulocytes are 80% of total cells. Monocytes are 11% of total cells. There is no overt abnormal myeloid antigen expression. The B-cells (1% of total) appear polytypic. The T-cells (8% of total) show no barreto T-cell antigenic deletion. Cytomorphology: Smears from flow sample show no increase in myeloblasts or atypical lymphocytes. FLOW CYTOMETRY FOR PNH PERFORMED AND INTERPRETED AT [employer] [place], [place]. ([id number]) SHOWED THE FOLLOWING: INTERPRETATION: No phenotypic evidence of Paroxysmal Nocturnal Hemoglobinuria (PNH). PHENOTYPE: Immunophenotypic analysis was performed using gating antibodies CD45, GPH-A, CD15, CD14, CD64, CD59 as well as Fluorescent Aerolysin (FLAER). Red Blood Cells: No evidence of decreased or absent CD59 expression. Monocytes: No evidence of decreased or absent expression of FLAER. Granulocytes: No evidence of decreased or absent expression of FLAER. Cytomorphology: Smears from the flow sample show no increase in myeloblasts or atypical lymphocytes. Electronically Signed Conner Landrum M.D. Addendum Reported: 06/24/2017 Addendum Diagnosis JAK2 V617F MUTATION ANALYSIS BY PCR PERFORMED AND INTERPRETED AT [place], [place] ([id number]) SHOWED THE FOLLOWING: RESULTS: ONLY THE WILD-TYPE JAK2 SEQUENCE WAS DETECTED. INTERPRETATION: NEGATIVE FOR JAK2 V617F MUTATION. Conner Landrum M.D. Gross Description Received are two green and two purple top tubes. Forwarded for further studies.
--- NOTE | 2017-06-24 11:05 | PN ---
Physical Exam: SUBJECTIVE: Patient underwent abdominal ultrasound today to assess any changes with his portal vein thrombosis. Pt states his pain medication is working, however his pain still exists once the medication stops becoming effective. He states there is no change in intensity or character of pain when present. He has been initiated on Coumadin for long-term anticoagulation with today's INR being 4.29 today. Patient denies any abdominal fullness, SOB, CP/discomfort. Pt. tolerating full liquids without any nausea or vomiting. OBJECTIVE: Vital Signs Period Temp Pulse Resp BP Sys/Pino Pulse Ox Last 24 Hr 98.4 F-99.1 F 68-77 18-20 102-142/60-61 96 GENERAL: The patient is awake, alert, and fully oriented, in no acute distress resting comfortably in bed. EYES: PERRL, sclera anicteric, conjunctiva clear. LUNGS: CTA b/l; no wheezes, no crackles, no accessory muscle use. HEART: RRR, S1, S2 without murmur ABDOMEN: Soft, currently without tenderness, nondistended, normoactive bowel sounds. EXTREMITIES: no edema. CBC, BMP 06/24/17 06:00 06/24/17 06:00 Hepatic Panel Total Bilirubin 0.7 mg/dL (0.2-1.0) D 06/24/17 06:00 Direct Bilirubin 0.4 mg/dL (0.0-0.2) H 06/23/17 06:00 AST 16 U/L (15-37) D 06/24/17 06:00 ALT 16 U/L (12-78) 06/24/17 06:00 Alkaline Phosphatase 70 U/L (45-117) 06/24/17 06:00 Albumin 2.5 g/dl (3.4-5.0) L 06/24/17 06:00 INR, PTT INR 4.29 (0.82-1.09) H* D 06/24/17 06:00 ASSESSMENT/PLAN: Portal Vein thrombosis: --No surgical management per vascular --Continue to anticoagulate per primary team --Diet advance per post-bariatric surgery plan Problem List - Problems (1) Portal vein thrombosis Code(s): I81 - PORTAL VEIN THROMBOSIS Visit type - Emergency Visit Emergency Visit: No - New Patient This patient is new to me today: No - Critical Care Critical Care patient: No
[2017-06-24] MEDS: MULTIVITAMINS (DAILY MVI) TABLET (FP) PO SCH (11:18)
--- NOTE | 2017-06-24 11:31 | PN ---
GI Progress Note Subjective: No acute events Pain still persists, improved while on analgesia Full liquids does not seem to worsen the pain - Objective Vital Signs: Vital Signs Temperature 99.1 F 06/24/17 06:44 Pulse Rate 77 06/24/17 06:44 Respiratory Rate 20 06/24/17 06:44 Blood Pressure 142/60 06/24/17 06:44 O2 Sat by Pulse Oximetry (%) 96 06/23/17 21:00 Constitutional: Calm Eyes: No: Sclera Icterus Cardiovascular: Yes: Regular Rate and Rhythm Respiratory: Yes: CTA Bilaterally Gastrointestinal Inspection: Yes: Scars (trochar scars). No: Distention ...Auscultate: Yes: Hyperactive Bowel Sounds ...Palpate: Yes: Tenderness (TTP, predominantly to deep palpation at trochar sites). No: Guarding, Tenderness, Rebound ...Percussion: No: Tympanitic Edema: No Neurological: Yes: Alert, Oriented Labs: CBC, BMP 06/24/17 06:00 06/24/17 06:00 INR, PTT INR 4.29 (0.82-1.09) H* D 06/24/17 06:00 - ....Imaging Ultrasound: Report Reviewed (Portal vein thrombus noted on Doppler study) Problem List - Problems (1) Portal vein thrombosis Assessment/Plan: Fully anticoagulated Advance diet to low fat/residue in AM Hypercoagulable work-up per Heme AM labs ordered including lactic acid Discussed case with Vascular Surgeon Dr. Mckeon. Agreed with deferral of Thrombolysis at this point Code(s): I81 - PORTAL VEIN THROMBOSIS
--- NOTE | 2017-06-24 15:09 | PN ---
Progress Note (short form) - Note Progress Note: Patient seen and examined. he says pain comes back when the medication wears off. O/E: General: NAD HEENT: No scleral icterus Cardiac: RRR Lungs: clear Abdomen: + tenderness LE: no Edema or calf tenderness Last Vital Signs Temp Pulse Resp BP Pulse Ox 99.5 F 66 18 110/61 96 06/24/17 15:00 06/24/17 15:00 06/24/17 15:00 06/24/17 15:00 06/23/17 21:00 CBC, BMP 06/24/17 06:00 06/24/17 06:00 Current Medications Generic Name Dose Route Start Last Admin Trade Name Freq PRN Reason Stop Dose Admin Acetaminophen 650 mg 06/21/17 07:46 06/24/17 13:06 Tylenol - PO 650 mg Q4H PRN Administration FEVER OR PAIN Atorvastatin Calcium 20 mg 06/21/17 22:00 06/23/17 22:00 Lipitor - PO 20 mg HS ALFONSO Administration Dextrose/Sodium Chloride 1,000 mls @ 75 mls/hr 06/23/17 12:27 06/24/17 13:09 D5-1/2ns - IV 75 mls/hr ASDIR ALFONSO Administration Multivitamins/Minerals/Vitamin C 1 tab 06/21/17 10:00 06/24/17 11:18 Tab-A-Vit - PO 1 tab DAILY ALFONSO Administration Ondansetron HCl 4 mg 06/21/17 07:46 Zofran Injection IVPB Q6H PRN NAUSEA Oxycodone HCl 5 mg 06/23/17 06:18 06/24/17 13:05 Roxicodone - PO 5 mg Q6H PRN Administration PAIN Potassium Chloride 40 meq 06/24/17 13:15 K-Dur - PO 06/24/17 22:01 BID ALFONSO Assessment/Plan: Acute Portal Vein thrombus s/p Gastric sleeve on 06/07 HTN HLD Plan: -stop heparin -coumadin to be on hold today -INR in the am -f/u on the studies ordered -should follow-up in the office (any ) -pt continues to express interest in NOACs, insurance not covering, we will try to speak to his insurance company. -GI/Vascular consults noted. -d/w Hospitalist. Problem List - Problems (1) Portal vein thrombosis Code(s): I81 - PORTAL VEIN THROMBOSIS (2) S/P bariatric surgery Code(s): Z98.84 - BARIATRIC SURGERY STATUS
[2017-06-24] MEDS: POTASSIUM CHLORIDE TABS 20 MEQ TABLET.ER (FP) PO SCH ×2 (16:09→21:09)
--- NOTE | 2017-06-24 17:01 | PN ---
Physical Exam: SUBJECTIVE: Patient seen and examined. No acute events over night. Says he is still in pain and it has not got better. OBJECTIVE: Vital Signs Period Temp Pulse Resp BP Sys/Pino Pulse Ox Last 24 Hr 98.1 F-99.5 F 66-77 18-20 110-142/60-70 96 GENERAL: The patient is awake, alert, and fully oriented, in no acute distress. HEAD: Normal with no signs of trauma. EYES: PERRL, extraocular movements intact, sclera anicteric, conjunctiva clear. No ptosis. ENT: oropharynx clear without exudates, moist mucous membranes. NECK: supple. LUNGS: Breath sounds equal, clear to auscultation bilaterally, no wheezes, no crackles, no accessory muscle use. HEART: Regular rate and rhythm, S1, S2 without murmur, rub or gallop. ABDOMEN: Soft, tender to palpation in all quadrants, nondistended, normoactive bowel sounds, no guarding, no rebound, no hepatosplenomegaly, no masses. EXTREMITIES: 2+ pulses, warm, well-perfused, no edema. NEUROLOGICAL: Cranial nerves II through XII grossly intact. Normal speech, gait not observed. PSYCH: Normal mood, normal affect. SKIN: Warm, dry, normal turgor, no rashes or lesions noted Laboratory Results - last 24 hr 06/22/17 06/23/17 06/24/17 06:30 17:00 06:00 WBC 7.3 RBC 4.31 Hgb 12.5 Hct 36.7 MCV 85.2 MCH 29.0 MCHC 34.1 RDW 12.9 Plt Count 182 MPV 9.3 INR PTT (Actin FS) Sodium Potassium 3.4 L Chloride Carbon Dioxide Anion Gap BUN Creatinine Creat Clearance w eGFR Random Glucose Calcium Phosphorus Magnesium Total Bilirubin AST ALT Alkaline Phosphatase Total Protein Albumin Hep A IgM Ab Confirm Negative Hepatitis A Ab Total Positive H Hep Bs Antigen Negative Hep Bs Antibody Reactive Hep B Core Total Ab Negative 06/24/17 06/24/17 06/24/17 06:00 06:00 06:00 WBC RBC Hgb Hct MCV MCH MCHC RDW Plt Count MPV INR 4.29 H* D PTT (Actin FS) 59.8 H Sodium 139 Potassium 3.3 L Chloride 100 Carbon Dioxide 29 Anion Gap 10 BUN 5 L Creatinine 0.7 Creat Clearance w eGFR > 60 Random Glucose 125 H D Calcium 8.3 L Phosphorus 2.2 L Magnesium 2.0 Total Bilirubin 0.7 D AST 16 D ALT 16 Alkaline Phosphatase 70 Total Protein 5.8 L Albumin 2.5 L Hep A IgM Ab Confirm Hepatitis A Ab Total Hep Bs Antigen Hep Bs Antibody Hep B Core Total Ab Active Medications Generic Name Dose Route Start Last Admin Trade Name Freq PRN Reason Stop Dose Admin Acetaminophen 650 mg 06/21/17 07:46 06/24/17 13:06 Tylenol - PO 650 mg Q4H PRN Administration FEVER OR PAIN Atorvastatin Calcium 20 mg 06/21/17 22:00 06/23/17 22:00 Lipitor - PO 20 mg HS ALFONSO Administration Dextrose/Sodium Chloride 1,000 mls @ 75 mls/hr 06/23/17 12:27 06/24/17 13:09 D5-1/2ns - IV 75 mls/hr ASDIR ALFONSO Administration Multivitamins/Minerals/Vitamin C 1 tab 06/21/17 10:00 06/24/17 11:18 Tab-A-Vit - PO 1 tab DAILY ALFONSO Administration Ondansetron HCl 4 mg 06/21/17 07:46 Zofran Injection IVPB Q6H PRN NAUSEA Oxycodone HCl 5 mg 06/23/17 06:18 06/24/17 13:05 Roxicodone - PO 5 mg Q6H PRN Administration PAIN Potassium Chloride 40 meq 06/24/17 13:15 06/24/17 16:09 K-Dur - PO 06/24/17 22:01 40 meq BID ALFONSO Administration ASSESSMENT/PLAN: 46 yo gentleman with h/o Gastric sleeve sx , HTN who was admitted with abdominal pain and was found to have portal vein thrombosis and splenic vein thrombosis. #Acute portal vein thrombosis and splenic vein thrombosis, with partial splenic infarct . -Likely from surgery but hypercoaguable state needs to be ruled out -Stopped Heparin today -Held Coumadin today because of INR of 4.29. Will follow up labs in AM -Liver U/S- Portal vein thrombosis -F/U labs in the AM -Follow coag workup -Surgery intervention not recommended at this time per Vascular -Thrombolysis not recommended at this time as per Heme -Consider vascular eval as per GI #Abdominal pain likely from thrombosis - Dextrose/Sodium @ 75cc/hour - Full liquid diet. Will advance tomorrow. -Held diuretics while hydrating -Continue pain management (oxycodone 5mg q6), Avoid IV pain meds #HTN: -Will Monitor BP -Hold Diuretics #FEN: -Dextrose/Sodium @75cc/hour -replete Potassium 40meq BID -Full Liquid diet (will advance tomorrow) #PPX: -Coumadin 2.5mg (held today) Visit type - Emergency Visit Emergency Visit: Yes ED Registration Date: 06/21/17 Care time: The patient presented to the Emergency Department on the above date and was hospitalized for further evaluation of their emergent condition. - New Patient This patient is new to me today: No - Critical Care Critical Care patient: No
--- NOTE | 2017-06-24 17:40 | PN ---
Teaching Attending Note Name of Resident: Kylee Faria ATTENDING PHYSICIAN STATEMENT I saw and evaluated the patient. I reviewed the resident's note and discussed the case with the resident. I agree with the resident's findings and plan as documented. SUBJECTIVE: no fever or chills. cont with abd pain OBJECTIVE: NA, looks comfortable in bed CV : RRR Lungs : CTAB Ext : no edema Abd : soft, TTP in epigastric area. No rebound tenderness or guarding ASSESSMENT AND PLAN: 46 yo gentleman with h/o GAstric sleeve sx , HTN who was admitted with abd painand was found to have portal vein thrombosis and splenic vein thrombosis 1- Acute portal vein thrombosis and splenic vein thrombosis, with partial splenic infarct . possibly after sx but due to young age hypercoagulable state needs to be r/o . - off heparin, hold coumadin due to supratherapeuic INR - follow hypercoagulable w/u as out pt - D/W . no indication for thrombolysis 2- Abd pain, likely due to the thrombosis. unlikely pncreatitis or ischemia - cont oxycodone - low fat diet - lactate pending for tomorrow - Dc IVF 3- HTN:cont to hold diuretics. monitor BP Possible dc tomorrow will follow with his PCP and Dr. Durham
[2017-06-24] MEDS: ATORVASTATIN CA 20 MG TABLET (FP) PO SCH (21:09)
[2017-06-25] MEDS: oxyCODONE HCL 5 MG TABLET PO PRN ×3 (01:17→17:47)
[2017-06-25] MEDS: ACETAMINOPHEN 325 MG TABLET (FP) PO PRN ×3 (01:19→17:47)
[2017-06-25 07:44] LABS: BASOPHIL 0.3 % (0-2.0); EOSINOPHIL 2.4 % (0-4.5); MCH 29.4 pg (25.7-33.7); MCHC 34.1 g/dl (32.0-35.9); MEAN CELL VOLUME 86.3 fl (80-96); MEAN PLT VOLUME 8.9 fl (7.5-11.1); NEUTROPHILS 64.7 % (42.8-82.8); PLATELET COUNT 189 K/MM3 (134-434); RDW 13.3 % (11.9-15.9); WHITE BLOOD COUNT 6.6 K/mm3 (4.0-10.0)
[2017-06-25 07:54] LABS: INR 3.97 (0.82-1.09); PROTHROMBIN TIME (PATIENT) 44.9 SEC (9.98-11.88)
[2017-06-25 08:12] LABS: ANION GAP 6 (8-16); CALCIUM 8.8 mg/dL (8.5-10.1); CO2 30 mmol/L (21-32); CREATININE 0.8 mg/dL (0.7-1.3); GLUCOSE,RANDOM 80 mg/dL (74-106)
[2017-06-25 08:31] LABS: ALBUMIN 2.5 g/dl (3.4-5.0); ALK PHOS 87 U/L (45-117); ANION GAP 7 (8-16); BILIRUBIN,TOTAL 0.8 mg/dL (0.2-1.0); CALCIUM 8.5 mg/dL (8.5-10.1); CO2 29 mmol/L (21-32); CREATININE 0.8 mg/dL (0.7-1.3); GLUCOSE,RANDOM 79 mg/dL (74-106); SGOT/AST 23 U/L (15-37); SGPT/ALT 21 U/L (12-78)
[2017-06-25] MEDS: MULTIVITAMINS (DAILY MVI) TABLET (FP) PO SCH (09:02)
[2017-06-25 10:10] LABS: LAC INTERPRETATION Comment: (.); PTT-LA MIX 51.3 sec (0.0-48.9)
--- NOTE | 2017-06-25 11:41 | PN ---
Teaching Attending Note Name of Resident: Prince Madison ATTENDING PHYSICIAN STATEMENT I saw and evaluated the patient. I reviewed the resident's note and discussed the case with the resident. I agree with the resident's findings and plan as documented. SUBJECTIVE: NO n/v . CONT WITH aBD PAIN OBJECTIVE: NA, comfortable in bed CV : RRR Lungs : CTAB Ext : no edema Abd : soft, TTP in epigastric area. No rebound tenderness or guarding ASSESSMENT AND PLAN: 46 yo gentleman with h/o GAstric sleeve sx , HTN who was admitted with abd painand was found to have portal vein thrombosis and splenic vein thrombosis 1- Acute portal vein thrombosis and splenic vein thrombosis, with partial splenic infarct . possibly due to surgery - give 2 mg of coumadin tonight - follow hypercoagulable w/u as out pt - no indication for thrombolysis 2- Abd pain, likely due to the thrombosis. unlikely pncreatitis or ischemia lactic is NL . - decrease oxycodone -change to low fat puree ( home regimen after sx ) 3- HTN:resume diuretics tomorrow if needed. BP stable Possible dc tomorrow pending INR improvement f/u wi th PCP , and Dr. Frias ( who will follow INR) , appointment already scheduled
[2017-06-25] MEDS ORDERED: WARFARIN NA 2 MG TABLET (UD) PO ONE (18:00)
--- NOTE | 2017-06-25 20:01 | PN ---
Physical Exam: SUBJECTIVE: Patient seen and examined. No acute events over night. Says his pain has subsided and feels much better today. OBJECTIVE: Vital Signs Period Temp Pulse Resp BP Sys/Pino Pulse Ox Last 24 Hr 98.0 F-99 F 60-77 18-20 120-138/67-76 99-99 GENERAL: The patient is awake, alert, and fully oriented, in no acute distress. HEAD: Normal with no signs of trauma. EYES: PERRL, extraocular movements intact, sclera anicteric, conjunctiva clear. No ptosis. ENT: oropharynx clear without exudates, moist mucous membranes. NECK: supple. LUNGS: Breath sounds equal, clear to auscultation bilaterally, no wheezes, no crackles, no accessory muscle use. HEART: Regular rate and rhythm, S1, S2 without murmur, rub or gallop. ABDOMEN: Soft, tender to palpation in all quadrants, nondistended, normoactive bowel sounds, no guarding, no rebound, no hepatosplenomegaly, no masses. EXTREMITIES: 2+ pulses, warm, well-perfused, no edema. NEUROLOGICAL: Cranial nerves II through XII grossly intact. Normal speech, gait not observed. PSYCH: Normal mood, normal affect. SKIN: Warm, dry, normal turgor, no rashes or lesions noted Laboratory Results - last 24 hr 06/22/17 06/25/17 06/25/17 06:30 06:00 06:00 WBC 6.6 RBC 4.39 Hgb 12.9 Hct 37.8 MCV 86.3 MCH 29.4 MCHC 34.1 RDW 13.3 Plt Count 189 MPV 8.9 Neutrophils % 64.7 Lymphocytes % 18.2 D Monocytes % 14.4 H Eosinophils % 2.4 D Basophils % 0.3 INR PTT (Actin FS) 40.2 H D Lupus Anticoag PTT Mix 51.3 H LA PTT Baseline 57.4 H dRVVT Confirm Interp 45.6 Hexagonal Phospholipid 3 Sodium Potassium Chloride Carbon Dioxide Anion Gap BUN Creatinine Creat Clearance w eGFR Random Glucose Lactic Acid Calcium Total Bilirubin AST ALT Alkaline Phosphatase Total Protein Albumin Lipase 06/25/17 06/25/17 06/25/17 06:00 06:00 06:00 WBC RBC Hgb Hct MCV MCH MCHC RDW Plt Count MPV Neutrophils % Lymphocytes % Monocytes % Eosinophils % Basophils % INR PTT (Actin FS) Lupus Anticoag PTT Mix LA PTT Baseline dRVVT Confirm Interp Hexagonal Phospholipid Sodium 139 139 Potassium 4.1 D 4.3 Chloride 103 103 Carbon Dioxide 29 30 Anion Gap 7 L 6 L BUN 7 D 7 Creatinine 0.8 0.8 Creat Clearance w eGFR > 60 Random Glucose 79 D 80 Lactic Acid 1.0 Calcium 8.5 8.8 Total Bilirubin 0.8 AST 23 D ALT 21 D Alkaline Phosphatase 87 D Total Protein 6.0 L Albumin 2.5 L Lipase 286 06/25/17 06:00 WBC RBC Hgb Hct MCV MCH MCHC RDW Plt Count MPV Neutrophils % Lymphocytes % Monocytes % Eosinophils % Basophils % INR 3.97 H PTT (Actin FS) Lupus Anticoag PTT Mix LA PTT Baseline dRVVT Confirm Interp Hexagonal Phospholipid Sodium Potassium Chloride Carbon Dioxide Anion Gap BUN Creatinine Creat Clearance w eGFR Random Glucose Lactic Acid Calcium Total Bilirubin AST ALT Alkaline Phosphatase Total Protein Albumin Lipase Active Medications Generic Name Dose Route Start Last Admin Trade Name Freq PRN Reason Stop Dose Admin Acetaminophen 650 mg 06/21/17 07:46 06/25/17 17:47 Tylenol - PO 650 mg Q4H PRN Administration FEVER OR PAIN Atorvastatin Calcium 20 mg 06/21/17 22:00 06/24/17 21:09 Lipitor - PO 20 mg HS ALFONSO Administration Multivitamins/Minerals/Vitamin C 1 tab 06/21/17 10:00 06/25/17 09:02 Tab-A-Vit - PO 1 tab DAILY ALFONSO Administration Ondansetron HCl 4 mg 06/21/17 07:46 Zofran Injection IVPB Q6H PRN NAUSEA Oxycodone HCl 2.5 mg 06/25/17 11:00 06/25/17 17:47 Roxicodone - PO 2.5 mg Q6H PRN Administration PAIN ASSESSMENT/PLAN: 46 yo gentleman with h/o Gastric sleeve sx , HTN who was admitted with abdominal pain and was found to have portal vein thrombosis and splenic vein thrombosis. #Acute portal vein thrombosis and splenic vein thrombosis, with partial splenic infarct . -Likely from surgery but hypercoaguable state needs to be ruled out -Continue coumadin 2mg -Liver U/S- Portal vein thrombosis -F/U labs in the AM - follow hypercoagulable workup as out-patient -Surgery intervention not recommended at this time per Vascular -Thrombolysis not recommended at this time as per Heme -Consider vascular eval as per GI #Abdominal pain likely from thrombosis - Change to low fat Puree diet -Continue pain management (oxycodone 2.5mg), Avoid IV pain meds #HTN: -Will Monitor BP -Hold Diuretics, will likely resume tomorrow #FEN: No IV fluids Electrolytes WNL Low fat puree diet #PPX: Coumadin 2mg Dispo: Possible discharge tomorrow pending INR Will need to follow up with PCP and Hematology Dr. Frias to follow INR levels. Appointment already scheduled. Visit type - Emergency Visit Emergency Visit: Yes ED Registration Date: 06/21/17 Care time: The patient presented to the Emergency Department on the above date and was hospitalized for further evaluation of their emergent condition. - New Patient This patient is new to me today: No - Critical Care Critical Care patient: No
[2017-06-25] MEDS: ATORVASTATIN CA 20 MG TABLET (FP) PO SCH (22:35)
[2017-06-26] MEDS: oxyCODONE HCL 5 MG TABLET PO PRN
[2017-06-26] MEDS: ACETAMINOPHEN 325 MG TABLET (FP) PO PRN (00:36)
[2017-06-26 05:37] VITALS: PULSE 63
[2017-06-26 08:17] LABS: MCH 29.3 pg (25.7-33.7); MCHC 33.8 g/dl (32.0-35.9); MEAN CELL VOLUME 86.6 fl (80-96); MEAN PLT VOLUME 8.9 fl (7.5-11.1); PLATELET COUNT 207 K/MM3 (134-434); RDW 13.3 % (11.9-15.9); WHITE BLOOD COUNT 7.1 K/mm3 (4.0-10.0)
[2017-06-26 08:35] LABS: INR 2.78 (0.82-1.09); PROTHROMBIN TIME (PATIENT) 31.2 SEC (9.98-11.88)
[2017-06-26 08:44] LABS: ALBUMIN 2.7 g/dl (3.4-5.0); ANION GAP 9 (8-16); CALCIUM 8.9 mg/dL (8.5-10.1); CO2 28 mmol/L (21-32); CREATININE 0.7 mg/dL (0.7-1.3); GLUCOSE,RANDOM 78 mg/dL (74-106); SGOT/AST 36 U/L (15-37); SGPT/ALT 29 U/L (12-78)
[2017-06-26 08:46] LABS: ALK PHOS 94 U/L (45-117); BILIRUBIN,TOTAL 0.7 mg/dL (0.2-1.0); TOT PROT 6.3 g/dl (6.4-8.2)
[2017-06-26] MEDS: MULTIVITAMINS (DAILY MVI) TABLET (FP) PO SCH (09:01)
[2017-06-26 10:43] VITALS: BP 139/75; TEMP 98.8
--- NOTE | 2017-06-26 15:57 | DS ---
Physical Examination Vital Signs: Vital Signs Temperature 98.8 F 06/26/17 10:00 Pulse Rate 63 06/26/17 10:00 Respiratory Rate 20 06/26/17 10:00 Blood Pressure 139/75 06/26/17 10:00 O2 Sat by Pulse Oximetry (%) 99 06/26/17 09:00 Findings/Remarks: pt has no fever or chills, today . ad pain has improved PE: NA, comfortable in bed CV : RRR Lungs : CTAB Ext : no edema Abd : soft, TTP in epigastric area. No rebound tenderness or guarding Labs: CBC, BMP 06/26/17 06:45 06/26/17 06:45 Discharge Summary Reason For Visit: PORTAL VEIN THROMBOSIS Current Active Problems Portal vein thrombosis (Acute) Hospital Course: 46 yo gentleman with h/o sleeve gastrectomy in , HLP and HTN who was admitted with abd pain . Initial w/u included CTA whic showed extensive thrombosis of the protal vein with involvement of the splenic vein. this was confirmed with US doppler. This was felt to be due to the surgical procedure but due to the young age a hypercoagulable w/u was started ( so far JAk2 is neg , but all other labs pending ) . The pt has no evidence of ischemia with NL lactic acid. He also had NL Liver function. He was treated with heparin gtt and was bridged to coumadin . vascular and GI were involved and decision was made against thrombolysis due to the normal liver functions. His Lpase was alsightly elevated , but he was not thought to have acute pancreatitis . he was given gentle hydration. The abd pain has improved and patient was placed on his puree diet , and was discharged home on 3 mg of coumadin daily . Next INR in 2 days and it is to be followed by Dr. Frias. Hypercoagulable w/u to be continued and followed as out pt . Duration of AC is to be determined, but vascular Sx recommended life long AC. Dispo : Home COndition at DC : Improved Time spent :40 min F/U : PCP in CT, HEme and GI . Condition: Improved - Instructions Diet, Activity, Other Instructions: - Please follow up with your primary doctor - follow with Dr. Frias from hematology, she will be the one monitoring your INR - please follow with Dr. Ivan from GI in 2 weeks - Take 3 mg of coumadin starting ton, and need INR on Tuesday . - your coumadin dose might be changing depending on INR level . - keep a steady diet - report any bleeding to your doctor - do not exceed 4 mg of tylenol /day - Good luck Referrals: Enmanuel Ivan DO [Staff Physician] - 2 Weeks Tiesha Vizcarra MD [Staff Physician] - 06/30/17 Disposition: HOME - Home Medications Comprehensive Discharge Medication List: Ambulatory Orders Atorvastatin Ca [Lipitor] 20 mg PO DAILY 06/19/17 Calcium Carbonate/Vitamin D2 [Calcium Oys Shell 250 mg Tab] 1 each PO BID Famotidine 20 mg PO BID 06/19/17 Multivitamin [Poly-Vitamin] 1 each PO DAILY 06/19/17 Triamterene/Hydrochlorothiazid [Maxzide 37.5 mg-25 mg Tablet] 1 each PO DAILY Ursodiol [Actigall] 600 mg PO BID 06/19/17 Acetaminophen [Tylenol] 650 mg PO TID PRN #1 tablet 06/26/17 Miscellaneous Medical Supply [Outpatient Order] 1 each ASDIR #1 misc Tramadol HCl 50 mg PO BID PRN #6 tablet MDD 100 mg 06/26/17 Warfarin Sodium 3 mg PO DAILY@18 #60 tablet 06/26/17 This patient is new to me today: No Emergency Visit: Yes ED Registration Date: 06/21/17 Care time: The patient presented to the Emergency Department on the above date and was hospitalized for further evaluation of their emergent condition. Critical Care patient: No - Discharge Referral Referred to [facility] No
== END 2017-06-26 11:34 | disposition home or self-care (01) | DRG 443 ==
LOC: JER 02:09 → INTOOBSV 06:33 → UNDOADMOB 06:33 → JERBED 06:33 → UNDOADMIN 06:44 → JERBED 09:29 → J8W 12:10 → OBSVTOIN 15:46
PROVIDERS: ADMIT Internal Medicine; ATTEND Internal Medicine
DX: I81 Portal vein thrombosis (principal); D73.5 Infarction of spleen; I10 Essential (primary) hypertension; E78.5 Hyperlipidemia, unspecified; E87.6 Hypokalemia
CPT/HCPCS: 36415; 74174-TC; 80048; 80053; 80076; 81240; 81241; 81291; 82105; 82150; 82248; 83605; 83615; 83690; 83735; 84100; 84132; 84478; 85025; 85027; 85610; 85613; 85730; 85732; 86704; 86706; 86708; 86803; 86850; 86900; 86901; 87340; 88300-TC; 93005; 93010; 93976; 99285-25; G0378; J1644

== ENCOUNTER 2020-09-02 11:38 | Emergency (ER) | payer BC, OTHER ==
[2020-09-02 11:46] VITALS: BP 138/59; PULSE 58; TEMP 98.6; BMI 27.3
[2020-09-02] MEDS ORDERED: IBUPROFEN 400 MG TABLET (FP) PO ONE ×2 (12:25→12:29)
[2020-09-02] MEDS ORDERED: FLUORESCEIN NA 1 EA STRIP ONE (12:28)
[2020-09-02] MEDS ORDERED: TETRACAINE 0.5% OPHTH SOLN 2 ML BOTTLE ONE (12:28)
[2020-09-02] MEDS ORDERED: TETRACAINE 0.5% HCL 0.6ML DROPPER.BOTTLE OS ONE (12:28)
[2020-09-02] MEDS ORDERED: DIPHTH,PERTUSS(ACELL),TET 0.5 ML DISP.SYRIN IM ONE ×2 (13:02→13:04)
== END 2020-09-02 13:33 | disposition home or self-care (01) ==
LOC: JERFT 11:38
PROC: 3E0234Z Introduction of Serum, Toxoid and Vaccine into Muscle, Percutaneous Approach (ICD-10-PCS; principal; 2020-09-02)
DX: B02.8 Zoster with other complications (principal)
CPT/HCPCS: 90715; 99284-25

== ENCOUNTER 2021-03-21 23:23 | Emergency (ER) | payer BC, OTHER ==
[2021-03-21 23:30] VITALS: BMI 27.3
[2021-03-22] MEDS ORDERED: ACETAMINOPHEN 1000 MG/100 ML VIAL (NON FORMULARY) IVPB ONE (00:28)
[2021-03-22] MEDS ORDERED: LACTATED RINGERS SOLUTION 1000 ML INFUS.BAG IV ONE (00:28)
[2021-03-22] MEDS ORDERED: ACETAMINOPHEN INJECTION 100 ML IVPB ONE (00:32)
[2021-03-22 00:54] LABS: BASO % 0.9 % (0-2.0); EOS % 0.3 % (0-4.5); HEMATOCRIT 41.7 % (35.4-49); HEMOGLOBIN 14.1 GM/dL (11.7-16.9); LYMPH % 10.4 % (8-40); MCHC 33.9 g/dl (32.0-35.9); MEAN CELL VOLUME 88.7 fl (80-96); MEAN PLT VOLUME 8.7 fl (7.5-11.1); MONO % 7.3 % (3.8-10.2); NEUT % 81.1 % (42.8-82.8); PLATELET COUNT 173 K/MM3 (134-434); RDW 13.9 % (11.9-15.9); WHITE BLOOD COUNT 9.1 K/mm3 (4.0-10.0)
[2021-03-22 01:07] LABS: INR 1.16 (0.83-1.09); PROTHROMBIN TIME (PATIENT) 14.2 SEC (9.7-13.0)
[2021-03-22 01:10] LABS: ACTIVATED PTT 28.6 SECONDS (25.2-36.5)
[2021-03-22 01:13] LABS: CHLORIDE 104 mmol/L (98-107); SODIUM 137 mmol/L (136-145)
[2021-03-22 01:15] LABS: ALBUMIN 3.6 g/dl (3.4-5.0); ANION GAP 7 MMOL/L (8-16); CALCIUM 8.8 mg/dL (8.5-10.1); CO2 27 mmol/L (21-32); GLUCOSE,RANDOM 116 mg/dL (74-106)
[2021-03-22 01:18] LABS: CREATININE 0.9 mg/dL (0.55-1.3); SGPT/ALT 9 U/L (13-61)
[2021-03-22 01:20] LABS: TOT PROT 7.3 g/dl (6.4-8.2)
[2021-03-22 01:21] LABS: ALK PHOS 74 U/L (45-117)
[2021-03-22 01:23] LABS: SGOT/AST 18 U/L (15-37)
[2021-03-22 01:25] LABS: N-TERMINAL BNP 391.7 pg/ml (5-125)
[2021-03-22 01:27] LABS: BLOOD UREA NITROGEN 12.4 mg/dL (7-18)
[2021-03-22] MEDS ORDERED: morphine CARPU-JECT 2 MG/1 ML DISP.SYRIN IVPUSH ONE (01:36)
[2021-03-22] MEDS ORDERED: MORPHINE SULFATE 2 MG/ML VIAL ONE (01:43)
[2021-03-22 06:06] VITALS: BP 138/105; PULSE 111; TEMP 98.8
== END 2021-03-22 06:26 | disposition short-term general hospital (02) ==
LOC: JER 23:23
PROC: 3E033NZ Introduction of Analgesics, Hypnotics, Sedatives into Peripheral Vein, Percutaneous Approach (ICD-10-PCS; principal; 2021-03-21)
DX: R07.9 Chest pain, unspecified (principal)
CPT/HCPCS: 36415; 71045-TC-FY; 71275-TC; 80053; 83880; 84484; 85025; 85610; 85730; 93005; 93010; 99285-25; C9803; Q9967; U0003; U0005